=== PATIENT | female | born 1975 | race Caucasian/White ===

== ENCOUNTER 2019-06-07 13:24 | Outpatient (CLI) | payer OTHER, SELFPAY ==
--- NOTE | ~2019-06-07 | MM_ITS ---
EXAMINATION: MM screening garry BI w nellie HISTORY: Screening mammogram TECHNIQUE: Craniocaudal and mediolateral oblique 3-D tomosynthesis images were obtained and synthetic 2-D images were generated. CAD analysis was submitted and interpreted. COMPARISON: Comparison to multiple prior studies sequentially, with oldest reviewed study dated 05/15. BREAST PARENCHYMAL COMPOSITION: There are scattered areas of fibroglandular density. FINDINGS: There is no evidence of suspicious mass, calcification, or architectural distortion to sugg est malignancy in either breast. There has been no suspicious interval change. IMPRESSION: 1. No mammographic evidence of malignancy. 2. Recommend routine screening mammography in one year. BI-RADS Category 1: Negative Reviewed, dictated and finalized at location A. F SERVICES MANAGER
== END 2019-06-07 13:25 ==
PROVIDERS: PCP Family Medicine; Visit Provider Family Medicine
DX: Z12.31 Encounter for screening mammogram for malignant neoplasm of breast (principal)
CPT/HCPCS: 77063; 77067

== ENCOUNTER 2022-07-17 08:38 | Emergency (ER) | payer BC, SELFPAY ==
[2022-07-17] VITALS (14 sets, daily range): BP systolic 101–141; BP diastolic 30–102; PULSE 66–96; RESP 15–21; TEMP 36.6; O2SAT 79–99
--- NOTE | ~2022-07-17 | XR_ITS ---
EXAMINATION: XR chest 2V DATE: 07/17/2022 09:40 INDICATION: Chest pain TECHNIQUE: PA and lateral views of the chest are obtained. COMPARISON: 07/06/2017 FINDINGS: The lungs are free of acute opacities. There is mild scarring of the lung apices. No pleura l effusion or pneumothorax. The cardiomediastinal silhouette is normal. There is mild thoracic spondy losis. Surgical clips in the right upper quadrant are likely from prior cholecystectomy. IMPRESSION: 1. No acute cardiopulmonary abnormality. Reviewed, dictated and finalized at location A.
--- NOTE | 2022-07-17 08:43 | ECG_ITS ---
Measurements Intervals [place] Rate: 83 P: 63 TN: 141 QRS: 34 QRSD: 85 T: 11 QT: 351 QTc: 413 Interpretive Statements SINUS RHYTHM NO PREVIOUS ECG AVAILABLE FOR COMPARISON Electronically Signed On 07-17-2022 22:15:23 CDT by Micaela Stoddard M.D.
[2022-07-17] MEDS: NITROGLYCERIN SL 0.4 MG TABLET SUBLINGUAL (09:03)
[2022-07-17 09:22] LABS: Alanine Aminotransferase 18 U/L (6-35); Albumin Level 4.4 g/dL (3.5-5.1); Alkaline Phosphatase 83 U/L (38-126); Anion Gap 7 mmol/L (8-16); Aspartate Amino Transferase 20 U/L (14-36); Bilirubin,Total 0.5 mg/dL (0.2-1.3); Blood Urea Nitrogen 8 mg/dL (7-17); Calcium 9.3 mg/dL (8.4-10.2); Carbon Dioxide 28 mmol/L (22-30); Chloride 104 mmol/L (98-107); Estimated CRCL calculation 70 ml/min; Estimated Glomerular Filt Rate > 60; Glucose 94 mg/dL (65-110); INR 0.9; Lipase 55 U/L (23-300); Potassium 3.9 mmol/L (3.4-5.0); Prothrombin Time 12.1 Seconds (11.1-14.7); Sodium 139 mmol/L (137-145)
[2022-07-17 09:23] LABS: Partial Thromboplastin Time 27.7 SECONDS (22.3-36.8)
[2022-07-17 09:34] LABS: Troponin I < 0.012 ng/mL (0.000-0.034)
[2022-07-17 10:51] LABS: Basophils Absolute Auto 0.1 K/mm3 (0.0-0.1); Basophils Percent Auto 0.5 % (0.2-1.2); Eosinophils Absolute Auto 0.3 K/mm3 (0-0.3); Hematocrit 43.9 % (37.0-47.0); Hemoglobin 13.8 g/dL (12.0-15.0); Immature Granulocyte Absolute 0.07 K/mm3 (0.00-0.031); Immature Granulocyte Percent A 0.5 % (0-0.5); Lymphocytes Absolute Auto 3.23 K/mm3 (0.9-3.2); Lymphocytes Percent Auto 24.5 % (18.3-44.2); Mean Corpuscular HGB Conc 31.4 g/dl (32-36); Mean Corpuscular Hemoglobin 29.8 pg (26-34); Mean Corpuscular Volume 94.8 fl (80-100); Monocytes Absolute Auto 1.1 K/mm3 (0.1-0.6); Monocytes Percent Auto 8.3 % (2.6-8.5); Neutrophils Absolute Auto 8.5 K/mm3 (1.3-6.7); Neutrophils Percent Auto 64.2 % (45.5-73.1); Platelet Count Result 373 k/mm3 (150-375); Red Blood Count 4.63 M/mm3 (4.2-5.4); Red Cell Distribution Width 13.3 % (11.5-14.5); White Blood Count 13.2 K/mm3 (4.5-10.0)
--- NOTE | 2022-07-17 11:30 | ED.CHESTPAIN ---
HPI - Chest Pain General Chief Complaint: Chest Pain Stated Complaint: HTN/ Chest pain Time Seen by Provider: 07/17/22 08:45 History of Present Illness HPI narrative: Patient is a 46-year-old female who presents ER with left-sided chest pain. 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 Reports it is 8/10 and is currently 6/10. No history of heart disease. Reports family history of heart disease in her father she is a former smoker with COPD. No fevers or chills or sweats. She is found no modifying factors. She does not report any prodrome of exertional chest discomfort prior to today. Related Data Allergies Allergy/AdvReac Type Severity Reaction Status Date / Time amoxicillin Allergy Unknown Rash Verified 07/17/22 13:36 cephalexin Allergy Unknown Rash Verified 07/17/22 13:36 clavulanic acid Allergy Unknown Rash Verified 07/17/22 13:36 codeine Allergy Unknown INCREASED Verified 07/17/22 13:36 HEART RATE AND CHEST PAIN Penicillins Allergy Unknown Rash Verified 07/17/22 13:36 telithromycin Allergy Unknown Rash Verified 07/17/22 13:36 metronidazole [From Flagyl] Allergy Rash Verified 07/17/22 13:36 POTASSIUM CLAVULANATE Allergy Mild Rash Uncoded 07/17/22 13:36 AMOXICILLIN TRIHYDRATE AdvReac Mild migraine Uncoded 07/17/22 13:36 CEPHALEXIN MONOHYDRATE AdvReac Mild rash Uncoded 07/17/22 13:36 Review of Systems Review of Systems: All systems reviewed & are unremarkable except as noted in HPI and below Constitutional: Constitutional: Denies chills and Denies fever(s) ENT: Denies nasal congestion and Denies sore throat Cardiovascular: Cardiovascular: Reports chest pain, Denies rapid heart rate and Denies radiating jaw, neck or arm pain Respiratory: Respiratory: Denies cough and Denies dyspnea Gastrointestinal: Gastrointestinal: Denies abdominal pain, Denies nausea and Denies vomiting [facility] Family History Family History (Updated 11/29/13 @ 07:13 by DOCTOR UNKNOWN) Father Hypertension Family history of elevated blood lipids Family history of chronic obstructive pulmonary disease Family history of congestive heart failure Acute myocardial infarction Mother Hypertension Family history of elevated blood lipids Other Diabetes mellitus Family history of heart disease in male family member before age 55 Family history of kidney disease Social History Social History Alcohol intake: current Exam Narrative: GENERAL: Well-appearing, well-nourished, and in no acute distress. HEAD: Normocephalic, atraumatic. EYES: PERRL and EOMI. ENT: Mucous membranes moist. CHEST: Clear to auscultation. No respiratory distress. HEART: Regular rate and rhythm. Normal peripheral pulses. ABDOMEN: Soft, nontender, nondistended. EXTREMITIES: Normal range of motion. No edema. SKIN: Warm, dry, no rash. NEURO: Alert and oriented x3. PSYCH: Normal mood and affect. Course Course Emergency Course: Patient resting comfortably. Pain improved with nitro x1. Discussed case with hospitalist Dr. Arvizu. She recommends obtaining a second troponin as patient has normal EKG and negative first troponin. If that second troponin is negative she will arrange an outpatient stress test for the patient as we are unable to perform stress testing in the hospital over the weekend. Patient feels comfortable with this plan. Second troponin has come back negative. Have spoken with Dr. Stoddard with cardiology. Patient still has 1/10 discomfort present no distress. She prefers to go home if possible. I discussed with her that after speaking with cardiology patient could be admitted to the hospital with potentially a stress test in 2 days when stress testing is available or she could follow-up outpatient for stress test. Patient prefers second option. The cardiology office will contact her. Vital Signs Vital signs: Vital Signs Temperature 97.9 F 07/17/22 08:42 Pulse Rate 8
[2022-07-17 12:24] LABS: Troponin I < 0.012 ng/mL (0.000-0.034)
== END 2022-07-17 13:59 | disposition home or self-care (01) ==
PROVIDERS: Emergency Provider Emergency Medicine; PCP Family Medicine
DX: R07.9 Chest pain, unspecified (principal); Z87.891 Personal history of nicotine dependence; J44.9 Chronic obstructive pulmonary disease, unspecified
CPT/HCPCS: 36415; 71046; 80053; 83690; 84484; 85025; 85610; 85730; 93005; 99284; A9270

== ENCOUNTER 2023-01-23 15:39 | Emergency (ER) | payer BC, SELFPAY ==
[2023-01-23 15:40] VITALS: BP 149/75; PULSE 63; RESP 18; TEMP 36.4; O2SAT 100
--- NOTE | 2023-01-23 16:41 | ED.SKABFB ---
HPI - Skin/Abscess/Foreign Bdy General Chief complaint: Skin/Abscess/Foreign Body Stated complaint: knot in groin area Time Seen by Provider: 01/23/23 15:46 History of Present Illness HPI narrative: Patient is a 47-year-old female who presents ER with concerns for infection to her left labia/mons region. Worsening over the last 3 days. No drainage. Increasing pain with palpation. No intravaginal component. Related Data Allergies Allergy/AdvReac Type Severity Reaction Status Date / Time amoxicillin Allergy Unknown Rash Verified 07/17/22 13:36 cephalexin Allergy Unknown Rash Verified 07/17/22 13:36 clavulanic acid Allergy Unknown Rash Verified 07/17/22 13:36 codeine Allergy Unknown INCREASED Verified 07/17/22 13:36 HEART RATE AND CHEST PAIN Penicillins Allergy Unknown Rash Verified 07/17/22 13:36 telithromycin Allergy Unknown Rash Verified 07/17/22 13:36 metronidazole [From Flagyl] Allergy Rash Verified 07/17/22 13:36 POTASSIUM CLAVULANATE Allergy Mild Rash Uncoded 07/17/22 13:36 AMOXICILLIN TRIHYDRATE AdvReac Mild migraine Uncoded 07/17/22 13:36 CEPHALEXIN MONOHYDRATE AdvReac Mild rash Uncoded 07/17/22 13:36 Review of Systems Constitutional: Constitutional: Denies chills and Denies fever(s) Genitourinary: Genitourinary: Denies abnormal vaginal bleeding, Denies genital lesions, Denies dysuria and Denies vaginal discharge Integumentary/Breasts: Skin/Breast: Denies erythema and Denies rash PMFSH Past Medical History Medical History (Updated 01/23/23 @ 16:53 by Ramon Saleem MD) COPD (chronic obstructive pulmonary disease) GERD (gastroesophageal reflux disease) Hypertension Surgical History Surgical History (Updated 01/23/23 @ 16:53 by Ramon Saleem MD) History of hysterectomy Family History Family History (Updated 11/29/13 @ 07:13 by DOCTOR UNKNOWN) Father Hypertension Family history of elevated blood lipids Family history of chronic obstructive pulmonary disease Family history of congestive heart failure Acute myocardial infarction Mother Hypertension Family history of elevated blood lipids Other Diabetes mellitus Family history of heart disease in male family member before age 55 Family history of kidney disease Social History Social History Alcohol intake: current Exam Narrative: GENERAL: Well-appearing, well-nourished, and in no acute distress. HEAD: Normocephalic, atraumatic. : Left labial cystic abscess without cellulitis. No intravaginal involvement. EXTREMITIES: Normal range of motion. No edema. NEURO: Alert and oriented x3. PSYCH: Normal mood and affect. Course Course Emergency Course: Abscess drained. Discharge home. Vital Signs Vital signs: Vital Signs Temperature 97.6 F 01/23/23 15:40 Pulse Rate 63 01/23/23 15:40 Respiratory Rate 18 01/23/23 15:40 Blood Pressure 149/75 H 01/23/23 15:40 Pulse Oximetry 100 01/23/23 15:40 Oxygen Delivery Room Air 01/23/23 15:40 Temperature 97.6 F 01/23/23 15:40 Pulse Rate 63 01/23/23 15:40 Respiratory Rate 18 01/23/23 15:40 Blood Pressure 149/75 H 01/23/23 15:40 Pulse Oximetry 100 01/23/23 15:40 Oxygen Delivery Room Air 01/23/23 15:40 Procedures Abscess I/D left labia: Date of Incision: 01/23/23 Time of Incision: 16:35 Local Anesthetic: lidocaine 1% and with epi Amount of anesthesia used (mL): 1.5 Technique: incised with #11 blade Packing used?: iodoform I&D Results: Pus Discharge Plan Discharge Clinical Impression: Abscess Patient Disposition: Home, Self-Care Condition: Stable Instructions: Antibiotic Form, Abscess (ED) Additional Instructions: Return the ER if you have increased pain, you have worsening redness or swelling to the affected area, you have additional concerns. Remove the packing in 2 days. Follow-up with gynecology you have additional issues. Prescriptions:
[2023-01-23] MEDS: LIDO 1%/EPINEPHRINE 1:100,000 20 ML VIAL (16:44)
== END 2023-01-23 17:06 | disposition home or self-care (01) ==
PROVIDERS: Emergency Provider Emergency Medicine; PCP Family Medicine
DX: N76.4 Abscess of vulva (principal); K21.9 Gastro-esophageal reflux disease without esophagitis; I10 Essential (primary) hypertension; J44.9 Chronic obstructive pulmonary disease, unspecified
CPT/HCPCS: 56405; 99283

== ENCOUNTER 2023-08-25 09:52 | Outpatient (CLI) | payer BC, SELFPAY ==
--- NOTE | ~2023-08-25 | XR_ITS ---
Right Hand Technique: PA, oblique, and lateral views were obtained. Clinical History: Pain Findings: No acute fracture or dislocation is seen. Osseous alignment is anatomic. Joint spaces are p reserved. Soft tissues are unremarkable. Impression: Unremarkable right hand. Reviewed, dictated and finalized at location M. Impression: Unremarkable right hand.
== END 2023-08-25 09:53 | disposition home or self-care (01) ==
LOC: ANHIMG 09:58
PROVIDERS: PCP Family Medicine
DX: M25.541 Pain in joints of right hand (principal)
CPT/HCPCS: 73130

== ENCOUNTER 2023-09-24 23:45 | Emergency (ER) | payer BC, SELFPAY ==
--- NOTE | ~2023-09-24 | XR_ITS ---
EXAMINATION: XR chest 1V portable DATE: 09/25/2023 00:25 INDICATION: Midsternal chest pain radiating to the left shoulder TECHNIQUE: frontal view of the chest was obtained. COMPARISON: Chest radiograph dated 07/17/2022 FINDINGS: Chronic mild right apical pleural-parenchymal scarring. No other airspace opacities, pulmonary edema, pleural effusion or pneumothorax. The cardiomediastinal silhouette is normal. IMPRESSION: 1. No acute cardiopulmonary disease. Reviewed, dictated and finalized at location A.
[2023-09-24 23:48] VITALS: BP 135/72; PULSE 64; RESP 14; TEMP 36.2; O2SAT 95
--- NOTE | 2023-09-24 23:49 | ECG_ITS ---
Test Date: 2023-09-24 23:50:34 Measurements Intervals [place] Rate: 65 P: 60 MS: 138 QRS: 36 QRSD: 98 T: 13 QT: 414 QTc: 431 Interpretive Statements SINUS RHYTHM WITH SINUS ARRHYTHMIA NORMAL ELECTROCARDIOGRAM No previous ECG available for comparison Electronically Signed On 09-25-2023 08:42:23 CDT by Noman Salguero M.D.
[2023-09-25] VITALS (16 sets, daily range): BP systolic 106–128; BP diastolic 71–77; PULSE 46–68; RESP 12–22; O2SAT 91–97
[2023-09-25 00:05] LABS: Basophils Absolute Auto 0.1 K/mm3 (0.0-0.1); Basophils Percent Auto 0.5 % (0.2-1.2); Eosinophils Absolute Auto 0.4 K/mm3 (0-0.3); Hematocrit 42.1 % (37.0-47.0); Hemoglobin 13.8 g/dL (12.0-15.0); Immature Granulocyte Absolute 0.03 K/mm3 (0.00-0.031); Immature Granulocyte Percent A 0.3 % (0-0.5); Lymphocytes Absolute Auto 4.26 K/mm3 (0.9-3.2); Lymphocytes Percent Auto 39.9 % (18.3-44.2); Mean Corpuscular HGB Conc 32.8 g/dl (32-36); Mean Corpuscular Hemoglobin 30.8 pg (26-34); Mean Platelet Volume 9.3 fl (7.4-10.4); Monocytes Absolute Auto 0.8 K/mm3 (0.1-0.6); Monocytes Percent Auto 7.1 % (2.6-8.5); Neutrophils Absolute Auto 5.2 K/mm3 (1.3-6.7); Neutrophils Percent Auto 48.2 % (45.5-73.1); Platelet Count Result 358 k/mm3 (150-375); Red Blood Count 4.48 M/mm3 (4.2-5.4); White Blood Count 10.7 K/mm3 (4.5-10.0)
[2023-09-25 00:15] LABS: INR 0.9; Prothrombin Time 13.1 Seconds (11.1-14.7)
[2023-09-25 00:26] LABS: Alanine Aminotransferase 36 U/L (6-35); Albumin Level 4.5 g/dL (3.5-5.1); Alkaline Phosphatase 76 U/L (38-126); Anion Gap 8 mmol/L (4-12); Aspartate Amino Transferase 33 U/L (14-36); Bilirubin,Total 0.5 mg/dL (0.2-1.3); Blood Urea Nitrogen 8 mg/dL (7-17); Calcium 9.4 mg/dL (8.4-10.2); Carbon Dioxide 26 mmol/L (22-30); Chloride 106 mmol/L (98-107); Estimated CRCL calculation 62 ml/min; Estimated Glomerular Filt Rate 59; Glucose 93 mg/dL (65-110); Lipase 77 U/L (23-300); Potassium 3.2 mmol/L (3.4-5.0); Sodium 140 mmol/L (137-145)
[2023-09-25 00:38] LABS: Troponin I < 0.012 ng/mL (0.000-0.034)
[2023-09-25] MEDS: BELLADONNA ALK/PHENOB ELIX 10 ML, MAG HYDROX/ALUMINUM HYD/SIMETH 30 ML, LIDOCAINE HCL 2... PO (00:58)
[2023-09-25] MEDS: NITROGLYCERIN SL 0.4 MG TABLET SUBLINGUAL (01:00)
--- NOTE | 2023-09-25 01:00 | PC.NURSE ---
0100 1st nitro given 62bpm, 17 RR, 94% on RA, and 137/73. Pain still 8/10.
[2023-09-25 01:01] LABS: NT Pro B Type Natriuretic Pept 49 pg/mL (19.9-100)
--- NOTE | 2023-09-25 02:36 | ECG_ITS ---
Test Date: 2023-09-25 02:45:11 Measurements Intervals [place] Rate: 49 P: 65 LA: 148 QRS: 53 QRSD: 107 T: 37 QT: 460 QTc: 419 Interpretive Statements SINUS BRADYCARDIA WITH SINUS ARRHYTHMIA OTHERWISE NORMAL ECG Compared to ECG 09/24/2023 23:50:34 HEART RATE REDUCED, NO OTHER DIFFERENCE Electronically Signed On 09-25-2023 08:47:29 CDT by Noman Salguero M.D.
--- NOTE | 2023-09-25 02:51 | PC.NURSE ---
Patient ambulated to the bathroom with a steady gait and back to her room. Patient placed back on the monitor.
--- NOTE | 2023-09-25 03:03 | ED.GENADULT ---
HPI - General Adult General Chief complaint: Chest Pain Stated complaint: cp Time Seen by Provider: 09/25/23 00:14 History of Present Illness HPI narrative: Patient is a 48-year-old female that presents emergency department with chief complaint of chest pain. Patient reports that she has had some discomfort in her mid chest radiates to her shoulder for the last hour the patient does reports she has history of CHF but no prior history of ischemic cardiac disease. Patient reports no stents reports she did take an aspirin prior to arrival. Related Data Allergies Allergy/AdvReac Type Severity Reaction Status Date / Time amoxicillin Allergy Unknown Rash Verified 09/25/23 00:57 cephalexin Allergy Unknown Rash Verified 09/25/23 00:57 clavulanic acid Allergy Unknown Rash Verified 09/25/23 00:57 codeine Allergy Unknown INCREASED Verified 09/25/23 00:57 HEART RATE AND CHEST PAIN Penicillins Allergy Unknown Rash Verified 09/25/23 00:57 telithromycin Allergy Unknown Rash Verified 09/25/23 00:57 metronidazole [From Flagyl] Allergy Rash Verified 09/25/23 00:57 POTASSIUM CLAVULANATE Allergy Mild Rash Uncoded 07/17/22 13:36 AMOXICILLIN TRIHYDRATE AdvReac Mild migraine Uncoded 07/17/22 13:36 CEPHALEXIN MONOHYDRATE AdvReac Mild rash Uncoded 07/17/22 13:36 Review of Systems Review of Systems: A 10 system review of systems was completed on the patient and is negative except for what is stated in the HPI. Nursing and ancillary documentation was reviewed. PMFSH Past Medical History Medical History COPD (chronic obstructive pulmonary disease) GERD (gastroesophageal reflux disease) Hypertension Surgical History Surgical History History of hysterectomy Family History Family History Father Hypertension Family history of elevated blood lipids Family history of chronic obstructive pulmonary disease Family history of congestive heart failure Acute myocardial infarction Mother Hypertension Family history of elevated blood lipids Other Diabetes mellitus Family history of heart disease in male family member before age 55 Family history of kidney disease Social History Social History Alcohol intake: current Exam Narrative: GENERAL: Well-appearing, well-nourished, and in no acute distress. HEAD: Normocephalic, atraumatic. EYES: PERRLA and EOMI. ENT: Nares clear, no rhinorrhea or epistaxis. Mucous membranes moist. NECK: Supple. CHEST: Clear to auscultation. No respiratory distress. HEART: Regular rate and rhythm. No murmur heard. Normal peripheral pulses. ABDOMEN: Soft, nontender, nondistended, normal active bowel sounds. EXTREMITIES: Normal range of motion. No edema. SKIN: Warm, dry, no rash. NEURO: No focal deficits. Alert and oriented x3. PSYCH: Normal mood and affect. Course Vital Signs Vital signs: Vital Signs Temperature 36.2 C L 09/24/23 23:48 Pulse Rate 64 09/24/23 23:48 Respiratory Rate 14 09/24/23 23:48 Blood Pressure 135/72 09/24/23 23:48 Pulse Oximetry 95 09/24/23 23:48 Oxygen Delivery Room Air 09/24/23 23:48 Temperature 36.2 C L 09/24/23 23:48 Pulse Rate 59 L 09/25/23 02:30 Respiratory Rate 19 09/25/23 02:30 Blood Pressure 106/75 09/25/23 01:16 Pulse Oximetry 94 09/25/23 02:30 Oxygen Delivery Room Air 09/25/23 01:56 Medical Decision Making [facility] Narrative Medical decision making narrative: Differential diagnosis includes noncardiac chest pain, ACS, CHF exacerbation, dysrhythmia Laboratory studies were obtained on the patient showed a white count of 10.7 electrolytes are within normal limits potassium was 3.2 troponin 0 hour was negative lipase was normal Chest x-ray showed no focal
[2023-09-25 03:15] LABS: Troponin I < 0.012 ng/mL (0.000-0.034)
== END 2023-09-25 03:49 | disposition home or self-care (01) ==
PROVIDERS: Emergency Provider Emergency Medicine; PCP Family Medicine
DX: R07.89 Other chest pain (principal); J44.9 Chronic obstructive pulmonary disease, unspecified; K21.9 Gastro-esophageal reflux disease without esophagitis; I10 Essential (primary) hypertension; Z90.710 Acquired absence of both cervix and uterus; R00.1 Bradycardia, unspecified
CPT/HCPCS: 36415; 71045; 80053; 83690; 83880; 84484; 85025; 85610; 85730; 93005; 99284; A9270

== ENCOUNTER 2024-08-21 15:29 | Emergency (ER) | payer BC, SELFPAY ==
[2024-08-21] VITALS (8 sets, daily range): BP systolic 112–130; BP diastolic 77–87; PULSE 94–114; RESP 18–24; TEMP 36.6–37.2; O2SAT 94–97
--- NOTE | ~2024-08-21 | XR_ITS ---
XR chest 2V Ordering provider: Luz Lewis PA-C History: 49 years Female with . sob . Comparison: September 25, 2023 FINDINGS: MEDIASTINUM: The cardiac silhouette is not enlarged. LUNGS: No infiltrates, effusions or pneumothorax. OTHER: No free air under the diaphragm. IMPRESSION: No acute cardiopulmonary pathology. Reviewed, dictated and finalized at location A.
--- NOTE | ~2024-08-21 | CT_ITS ---
EXAMINATION: CTA chest PE protocol DATE: 08/21/2024 21:36 INDICATION: MEY TECHNIQUE: Computed tomography angiography (CTA) of the chest was performed with 100 mL Omnipaque-350 intravenous contrast timed to evaluate the pulmonary arteries. Coronal maximum intensity projection 3D-reconstructions were created by the technologist. The dose-length product (DLP) was 291.41 mGy-cm. Automated exposure control and iterative reconstruction technique were employed. COMPARISON: X-ray chest, same date. FINDINGS: Lung parenchyma and airways: Mild emphysematous change. Mild bibasilar scar/atelectasis. Scattered ca lcified granulomas. Mild biapical pleural scarring. Patent airways. Pleura: Unremarkable. Thoracic inlet, axillae and chest wall: Unremarkable. Thoracic aorta: No significant dilation. No dissection. Mediastinum: Normal. Heart and pericardium: Normal. Coronary artery calcifications: . Upper abdomen: Left nephrolithiasis. Bones: No acute osseous finding. Pulmonary arteries: Study quality: Adequate. No pulmonary emboli detected. IMPRESSION: No CT evidence of acute pulmonary embolus. No acute process detected in the chest. Reviewed, dictated and finalized at location K.
--- OUTSIDE RECORDS SUMMARY | 2024-08-21 15:31 | XMS_ITS | Encounter Summary ---
Author Organization [facility] Address [address] [place] [id number] Care Team Providers Care Director Business Development Name Role Phone Essence Bowles MD Primary Care Provider [phone] Encounter Details Date Type Department Care Team (Late st Contact Info) Description 09/04/2019 Lab Requisition [facility]BIOLOG[facility] [address] [place] [address] Sahil Rodriguez MD Cough Social History Tobacco Use Types Packs/Day Years Used Date Smoking Tobacco: Never Assessed Comments Unknown Sex and Gender Information Value Date Recorded Sex Assigned at Not on file Legal Sex Female 8:57 AM CDT Gender Identity Not on file Sexual Orientation Not on file documented as of this encounter Plan of Treatment Not on file documented as of this encounter Procedures Procedure Name Priority Date/Time Associated Diagnosis Comments SARS-COV-2 (COVID-19) IN HOUSE Routine 09/04/2019 11:05 AM CDT Cough documented in this encounter Results * SARS-COV-2 (COVID-19) IN HOUSE (09/04/2019 11:05 AM CDT) COVID-19 PCR Not detected Not detected, Invalid 09/05/2019 3:22 PM CDT [facility] Microbiology SPECIMEN FROM NASOPHARYNGEAL STRUCTURE / Unknown Collection / Unknown 09/04/2019 11:05 AM CDT 09/04/2019 9:38 PM CDT Narrative [facility] - 09/05/2019 3:22 PM CDT This Real Time RT-PCR assay was developed and its performance characteristics determined by [facility]. This test has been authorized by the Food and Drug administration (FDA)under an Emergency Use Authorization (EUA). This test has been validated in accordance with the FDA's guidance document Policy for Diagnostic Testing in Laboratories Certified to perform High Complexity Testing under CLIA prior to Emergency Use Authorization for Coronavirus Disease-2019 during the Public Health Emergency issued on June 02, 2019. FDA independent review of this validation is pending. This test is only authorized for the duration of time the declaration that circumstances exist justifying the authorization of emergency use of in vitro diagnostic tests for detection of SARS-CoV-2 virus and/or diagnosis of COVID-19 infection under section 564(b)(1) of the Act, 21 U.S.C 360bbb-3 (b)(1), unless the authorization is terminated or revoked sooner. us Sahil Rodriguez MD LAB - MICROBIOLOGY ORDERABL ES Final Result [facility] [address] [place] [address], [facility] [phone] documented in this encounter Visit Diagnoses Diagnosis Cough documented in this encounter Additional Health Concerns Infection Onset Date Last Indicated Resolved Time COVID-19 Under Investigation 09/04/2019 09/04/2019 09/05/2019 3:22 PM CDT documented as of this encounter Care Teams Director Business Development Relationship Specialty Start Date End Date Essence Bowles MD [facility] [place] [id number] PCP - General 08/29/19 documented as of this encounter
--- OUTSIDE RECORDS SUMMARY | 2024-08-21 15:31 | XMS_ITS | Encounter Summary ---
Author Organization [facility] Address [address] [place] [address] Phone Care Team Providers Care Clinical Education Specialist Name Role Phone Elver Pineda MD Primary Care Provider [phone] Monica Villarreal MD Primary Care Provider + [phone] Kaiden Feliciano Primary Care Provider + [phone] Encounter Details Date Type Department Care Team (Latest Contact Info) Description 09/22/2022 Transcribe Orders [facility] Patient Access Admitting [address] [place] [address] Edmundo Carvajal MD [address] [facility], [address] [place] [address] Pain of lower extremity, unspecified laterality (Primary Dx); Chest pain, unspecified type; Irritable bowel syndrome, unspecified type; Other migraine without status migrainosus, not intractable; Attention deficit hyperactivity disorder (ADHD), unspecified ADHD type; Obstructive chronic bronchitis without exacerbation (HCC); Family history of ischemic heart disease; Hyperlipidemia, unspecified hyperlipidemia type; Hypertension, unspecified type Social History Tobacco Use Types Packs/Day Years Used Date Smoking Tobacco: Former Cigarettes 2017 Smokeless Tobacco: Never Alcohol Use Standard Drinks/Week Comments Never 0 (1 standard drink = 0.6 oz pur e alcohol) AUDIT-C Answer Date Recorded Frequency of Alcohol Consumption Never 01/23/2019 Average Number of Drinks Not on file 019 Frequency of Binge Drinking Not on file 01/03 Comments No Sex and Gender Information Value Date Recorded Sex Assigned at Not on file Legal Sex Female 10:16 AM CDT Gender Identity Not on file Sexual Orientation Not on file COVID-19 Exposure Response Date Recorded In the last 10 days, have yo u been in contact with someone who was confirmed or suspected to have Coronavirus/COVID-19? No / Unsure 09/22/2022 7:20 AM CDT documented as of this encounter Plan of Treatment Upcoming Encounters Date Type Department Care Team (Late st Contact Info) Description 11/21/2024 8:15 AM CDT Office Visit [facility] - Primary Care - [place] [address] [place] [address] Kaiden Feliciano PAC [address] [place] [address] documented as of this encounter Results * D-DIMER (09/22/2022 7:28 AM CDT) D DIMER 0.35 <0.50 mcg/mL FEU 09/22/2022 8:07 AM CDT [facility] Blood Venipuncture / Unknown 09/22/2022 7:28 AM CDT 09/22/2022 7:50 AM CDT Narrative [facility] - 09/22/2022 8:07 AM CDT The FDA has approved this method to exclude the diagnosis of DVT and/or PE at the cutoff value of <0.50 mcg/mL FEU. us Edmundo Carvajal MD HEMATOLOGY ORDERABLES Final Res ult [facility] [address] [place] [address] * (ABNORMAL) VITAMIN B12 (09/22/2022 7:28 AM CDT) VITAMIN B12 >=2,000(H) 243 - 894 pg/mL 09/22/2022 8:39 AM CDT [facility] Blood Venipuncture / Unknown 09/22/2022 7:28 AM CDT 09/22/2022 7:50 AM CDT Edmundo Carvajal MD CHEMISTRY ORDERABLES Final Resu lt [facility] [address] [place] [address] * VITAMIN D, 25 HYDROXY TOTAL (09/22/2022 7:28 AM CDT) VITAMIN D, 25 HYDROX 68 >=30 ng/mL 09/22/2022 8:37 AM CDT [facility] Blood Venipuncture / Unknown 09/22/2022 7:28 AM CDT 09/22/2022 7:50 AM CDT Narrative [facility] - 09/22/2022 8:37 AM CDT Published reference ranges for Vitamin D vary depending on time and place and method of testing, and on patient's age, sex, ethnicity and levels of other measured analytes such as parathormone, calcium and phosphorus. The result should be evaluated in conjunction with clinical findings and suspicions. [place] [employer] and [employer]ocrine Clinical Practice Guidelines: Status Vitamin D levels (ng/mL) Deficient <=20 At risk of inadequacy 21-29 Sufficient 30-100 Centers of Disease Control and Prevention Guidelines: Status Vitamin D levels (ng/mL) Deficient <13 At risk of inadequacy 13-19 Sufficient 20-50 Possibly harmful >50 References: [place] [employer], 2010 Dietary reference intakes for calcium and vitamin D. [place]: The National Academies Press. John M, Ines N, Shahnaz OROZCO, et al., Evaluation, treatment, and prevention of Vitamin D deficiency: an Endocrinology Clinical Practice Guideline. JCEM 2011 96: 7 5920-8762. Janie A, Ismael C, Diandra D, et al., Vitamin D Status: [place], 4511-8955, [facility] data brief, no. 59, MD [place]: [facility] for [facility] Statistics. 2011. Edmundo Carvajal MD CHEMISTRY ORDERABLES Final Resu lt [facility] [address] [place] [address] * (ABNORMAL) LIPID PANEL (09/22/2022 7:28 AM CDT) CHOLESTEROL 215(H) <=200 mg/dL 09/22/2022 8:27 AM CDT [facility] TRIGLYCERIDES 185(H) <150 mg/dL 09/22/2022 8:27 AM CDT [facility] HDL CHOLESTEROL 45.5 >40 mg/dL 8:27 AM CDT [facility] LDL 133(H) 5 - 130 mg/dL 09/22/2022 8:27 AM CDT [facility] VLDL 37 5 - 55 mg/dL 09/22/2022 8:27 AM CDT [facility] CHOL/HDL RATIO 4.7(H) 0.0 - 4.4 09/22/2022 8:27 AM CDT [facility] NON-HDL CHOLESTEROL 169.5(H) <130 mg/dL 09/22/2022 8:27 AM CDT [facility] IS THE PATIENT REQUIRED TO BE FASTING? No 09/22/2022 8:27 AM CDT [facility] Blood Venipuncture / Unknown 09/22/2022 7:28 AM CDT 09/22/2022 7:50 AM CDT Edmundo Carvajal MD CHEMISTRY ORDERABLES Final Resu lt [facility] [address] [place] [address] * (ABNORMAL) LIPOPROTEIN (A) (09/22/2022 7:28 AM CDT) [facility] LIPOPROTEIN(a) 72(H) <31 mg/dL 09/22/2022 3:23 PM CDT [facility] Blood Venipuncture / Unknown 09/22/2022 7:28 AM CDT 09/22/2022 7:50 AM CDT Narrative [facility] - 09/22/2022 3:23 PM CDT Values greater than 30 mg/dL may suggest increased risk of Coronary Heart Disease.. us Edmundo Carvajal MD CHEMISTRY ORDERABLES Final Resu lt Performing Organization Address City/[facility]/ZIP Co de Phone Number [facility] [address] [place] [address], [place] * C-REACTIVE PROTEIN (CRP) HIGH SENSITIVE (09/22/2022 7:28 AM CDT) [facility] CRP ULTRAQUANT 1.93 <5.00 mg/L 09/22/2022 7:46 PM CDT [facility] Blood Venipuncture / Unknown 09/22/2022 7:28 AM CDT 09/22/2022 7:50 AM CDT us Edmundo Carvajal MD CHEMISTRY ORDERABLES Final Resu lt Performing Organization Address City/[facility]/ZIP Co de Phone Number [facility] [address] [place] [address], [place] * HEMOGLOBIN A1C W/ ESTIMATED GLUCOSE (09/22/2022 7:28 AM CDT) [facility] HGB-A1C 5.3 4.0 - 6.0 % 09/22/2022 8:17 AM CDT [facility] Est Average Glucose 105.4 mg/dL 09/22/2022 8:17 AM CDT [facility] Blood Venipuncture / Unknown 09/22/2022 7:28 AM CDT 09/22/2022 7:50 AM CDT Narrative [facility] - 09/22/2022 8:17 AM CDT HEMOGLOBIN A1C: DIABETIC PATIENTS: WELL-CONTROLLED: 6.2 - 7.0 INTERMEDIATE WELL-CONTROLLED: 7.0 - 9.0 POORLY-CONTROLLED: >9.0 Edmundo Carvajal MD CHEMISTRY ORDERABLES Final Resu lt Performing Organization Address City/[facility]/ZIP Co de Phone Number [facility] [address] [place] [address] * UR MICROALBUMIN/CREATININE RATIO RANDOM (09/22/2022 7:28 AM CDT) RAN UR MICROALBUMIN <=1.20 <=2.00 mg/dL 09/22/2022 8:39 AM CDT [facility] CREATININE URINE 143.9 28.0 - 217.0 mg/dL 09/22/2022 8:39 AM CDT [facility] ALB/CREAT RATIO 8:39 AM CDT [facility] Comment:Unable to calculate Urine Non-Phlebotomy Collection / Unknown 09/22/2022 7:28 AM CDT 09/22/2022 7:50 AM CDT us Edmundo Carvajal MD URINE ORDERABLES Final Result Performing Organization Address [facility]/ZIP Co de Phone Number [facility] [address] [place] [address] * (ABNORMAL) IRON W/IRON BINDING CAPACITY (09/22/2022 7:28 AM CDT) IRON 49.65 37 - 145 mcg/dL 09/22/2022 8:27 AM CDT [facility] % SATURATION * 17(L) 20 - 55 % 09/22/2022 8:27 AM CDT [facility] UIBC 241 112 - 346 mcg/dL 09/22/2022 8:27 AM CDT [facility] TIBC CALC 291 149 - 491 mcg/dL 09/22/2022 8:27 AM CDT [facility] Blood Venipuncture / Unknown 09/22/2022 7:28 AM CDT 09/22/2022 7:50 AM CDT Edmundo Carvajal MD CHEMISTRY ORDERABLES Final Resu lt Performing Organization Address City/[facility]/ZIP Co de Phone Number [facility] [address] [place] [address] * FERRITIN (09/22/2022 7:28 AM CDT) FERRITIN 147 13 - 150 ng/mL 09/22/2022 8:27 AM CDT [facility] Blood Venipuncture / Unknown 09/22/2022 7:28 AM CDT 09/22/2022 7:50 AM CDT Edmundo Carvajal MD CHEMISTRY ORDERABLES Final Resu lt Performing Organization Address City/[facility]/ZIP Co de Phone Number [facility] [address] [place] [address] * (ABNORMAL) CMP (COMPREHENSIVE METABOLIC PANEL) (09/22/2022 7:28 AM CDT) SODIUM 139 136 - 144 mmol/L 09/22/2022 8:27 AM CDT [facility] POTASSIUM 3.3(L) 3.5 - 5.1 mmol/L 09/22/2022 8:27 AM CDT [facility] CHLORIDE 102 100 - 110 mmol/L 09/22/2022 8:27 AM CDT [facility] CO2, VENOUS 26 22 - 32 mmol/L 09/22/2022 8:27 AM CDT [facility] ANION GAP 14.3 8.0 - 20.0 mmol/L 09/22/2022 8:27 AM CDT [facility] GLUCOSE 95 70 - 99 mg/dL 09/22/2022 8:27 AM [facility] BUN 8 6 - 20 mg/dL 09/22/2022 8:27 AM [facility] CREATININE, BLOOD 0.93 0.60 - 1.10 mg/dL 09/22/2022 8:27 AM [facility] BUN/CREATININE RATIO 9(L) 12 - 20 ratio 09/22/2022 8:27 AM [facility] TOTAL PROTEIN 6.7 6.0 - 8.3 g/dL 09/22/2022 8:27 AM [facility] ALBUMIN 4.1 3.5 - 5.2 g/dL 09/22/2022 8:27 AM [facility] Comment: The colormetric methods used for the determination of Albumin may lead to falsely elevated test results in patients suffering from renal failure or insufficiency due to interference with other proteins. A/G RATIO 1.6 1.0 - 2.0 09/22/2022 8:27 AM [facility] CALCIUM 9.3 8.9 - 10.3 mg/dL 09/22/2022 8:27 AM [facility] T BILI <0.3 <=1.2 mg/dL 09/22/2022 8:27 AM [facility] SGOT (AST) 13 <=32 U/L 09/22/2022 8:27 AM [facility] SGPT (ALT) 12 <=41 U/L 09/22/2022 8:27 AM [facility] ALKALINE PHOSPHATASE 88 35 - 105 U/L 09/22/2022 8:27 AM [facility] IS THE PATIENT REQUIRED TO BE FASTING? No 09/22/2022 8:27 AM [facility] GFR, ESTIMATED >60 >=60 09/22/2022 8:27 AM [facility] Comment: Creatinine Clearance is the preferred criteria for selecting drug dose adjustments in renally impaired patients. The GFR is provided as additional pertinent clinical information. GFR is reported in mL/min/1.73 sq m. Calculation based on the Chronic Kidney Disease Epidemiology Collaboration (CKD- EPI) equation refit without adjustment for race. GFR, EST. >60 >=60 023 8:27 AM CDT [facility] GFR, EST. NONAFRICAN >60 >=60 09/22/2022 8:27 AM CDT [facility] Blood Venipuncture / Unknown 09/22/2022 7:28 AM CDT 09/22/2022 7:50 AM CDT Edmundo Carvajal MD CHEMISTRY ORDERABLES Final Resu lt Performing Organization Address City/[facility]/ZIP Co de Phone Number [facility] [address] [place] [address] * N-TERMINAL- PRO B TYPE NATRIURETIC PEPTIDE (09/22/2022 7:28 AM CDT) NT PROBNP 55.3 36.0 - 125.0 pg/mL 09/22/2022 8:24 AM CDT [facility] Comment:NT-proBNP values < 3 00 pg/mL have a 99% negative predictive value for excluding acute congestive heart failure (CHF) in all age groups. In the absence of renal failure, CHF is suggested in adults < 50 years of age with a NT-pro BNP > 450 pg/mL; in adults 50-75 years of age with a NT-proBNP > 900 pg/mL; and in adults > 75 years of age with a NT-proBNP > 1800 pg/mL. For patients with an e-GFR < 60 a NT-proBNP > 1200 pg/mL yields a diagnostic sensitivity and specificity of 89% and 72% for acute CHF. ([facility] data) Blood Venipuncture / Unknown 09/22/2022 7:28 AM CDT 09/22/2022 7:50 AM CDT us Edmundo Carvajal MD CHEMISTRY ORDERABLES Final Resu lt Performing Organization Address City/[facility]/ZIP Co de Phone Number [facility] [address] [facility] [place] [address] documented in this encounter Visit Diagnoses Diagnosis Pain of lower extremity, unspecified laterality- Primary Chest pain, unspecified type Irritable bowel syndrome, unspecified type Other migraine without status migrainosus, not intractable Attention deficit hyperactivity disorder (ADHD), unspecified ADHD type Obstructive chronic bronchitis without exacerbation (HCC) Obstructive chronic bronchitis without exacerbation Family history of ischemic heart disease Hyperlipidemia, unspecified hyperlipidemia type Hypertension, unspecified type documented in this encounter Care Teams Clinical Education Specialist Relationship Specialty Start Date End Date Elver Pineda MD [address] [place] [address] PCP - General Family Medicine 08/07/19 03/11/24 Monica Villarreal MD [address] [place] [address] PCP - General Family Medicine 03/12/24 05/22/24 Kaiden Feliciano, [facility] [address] [place] [id number] PCP - General Physician Clerical Receptionist 05/23/24 documented as of this encounter
--- OUTSIDE RECORDS SUMMARY | 2024-08-21 15:31 | XMS_ITS | Clinical Summary ---
Author Organization [facility] Address [address] [place] [address] Care Team Providers Care Registered Radiation Therapist Name Role Phone Essence Bowles MD Primary Care Provider [phone] Source Comments [facility] (formerly [facility]),non-owned Affiliates and Associated Physician Practices is amultiple site organization consisting of ambulatory clinics and hospital sitesin [place]. This disclosure is being madepursuant to the Care Everywhere program and may not contain all information available regarding this patient. Last updated 17.[facility] ([facility] Social History Tobacco Use Types Packs/Day Years Used Date Smoking Tobacco: Never Assessed Comments Unknown Sex and Gender Information Value Date Recorded Sex Assigned at Not on file Legal Sex Female 8:57 AM CDT Gender Identity Not on file Sexual Orientation Not on file Plan of Treatment Health Maintenance Due Date Last Done Comments COLOGUARD (AGES 45-75) - COL ON CA SCREENING 1973 COLON MONITORING 1973 COLONOSCOPY - COLON CA SCREENING 1973 CT COLONOGRAPHY - COLON CA SCREENING 1973 Colorectal Cancer Screening 1973 FIT - COLON CA SCREENING 1973 FLEX SIG - COLON CA SCREENING 1973 LIPID TESTING 1973 MAMMOGRAM 1973 HIV SCREENING 1988 HEPATITIS C SCREENING 08/01/1991 DTAP/TDAP/TD VACCINES (1 - Tdap) 1992 HEPATITIS B VACCINE (1 of 3 - 19+ 3-dose series) 1992 PNEUMOCOCCAL VACCINE 50+ (1 of 1 - PCV) 08/06/2023 ZOSTER VACCINE (1 of 2) 08/06/2023 COVID-19 VACCINE (1 - 2023-2 5 season) 2023 DEPRESSION SCREENING 04/04/2024 INFLUENZA VACCINE (Season Ended) 2024 HIB VACCINE Aged Out No longer eligi ble based on patient's age to complete this topic HPV VACCINE Aged Out No longer eligi ble based on patient's age to complete this topic MENINGOCOCCAL (Group B) VACC INE SHARED DECISION-MAKING Aged Out No longer eligibl e based on patient's age to complete this topic MENINGOCOCCAL GROUPS A/C/Y/W VACCINE Aged Out No longer eligible b ased on patient's age to complete this topic Insurance [employer] Care Teams Registered Radiation Therapist Relationship Specialty Start Date End Date Essence Bowles MD [address] [place] [address] [address] [place] [address] PCP - General 08/29/19
--- OUTSIDE RECORDS SUMMARY | 2024-08-21 15:31 | XMS_ITS | Clinical Summary ---
Author Organization [facility] [place] [address] [place] [address] Care Team Providers Care Histologist Name Role Phone Unavailable Primary Care Provider Unavailabl e Social History Tobacco Use Types Packs/Day Years Used Date Smoking Tobacco: Never Assessed Comments Unknown Sex and Gender Information Value Date Recorded Sex Assigned at Not on file Legal Sex Female 12:42 AM PST Gender Identity Not on file Sexual Orientation Not on file Plan of Treatment Not on file
--- OUTSIDE RECORDS SUMMARY | 2024-08-21 15:31 | XMS_ITS | Clinical Summary ---
Author Organization [facility] Address [address] [place] [phone] Care Team Providers Care Design Draftsman Name Role Phone [facility], External Provider Primary Care Provider Un available Allergies Active Allergy Reactions Criticality Noted Date Comments Amoxicillin Other (See Comments) 08/31/2016 Migraine Amoxicillin-Pot Clavulanate Headache Low 09/29/19 19 Cephalexin Rash Low 08/31/2016 Codeine Hypertension Medium 09/28/2018 Potassium Headache Low 08/31/2016 Potassium Clavulanate Hives High 04/29/2014 Telithromycin Other (See Comments) 08/31/2016 Vision Loss Medications amLODIPine (NORVASC) 10 mg tablet Take 10 mg by mouth daily. Active metoprolol tartrate (LOPRESSOR) 25 mg tablet Take 25 mg by mouth 2 times daily. Active dextroamphetamine -amphetamine (ADDERALL) 20 mg tablet Take 20 mg by mouth daily. Active albuterol (VENTOLIN INHALATION) Take by inhalation. Active budesonide-formot roxana (SYMBICORT) 80-4.5 mcg/actuation HFA Aerosol Inhaler Take 2 Puffs by inhalation 2 times daily. Active cholecalciferol, Vitamin D3, 2,000 unit Tablet Take by mouth. Act nery vitamin E 400 unit capsule Take 400 Units by mouth daily. Active Biotin 1 mg Tablet Take by mouth. Activ e HYDROcodone-aceta minophen (NORCO) 5-325 mg tablet Take 1 Tablet by mouth every 4 hours as needed for Pain, Moderate. Active atorvastatin (LIPITOR) 20 mg tablet Take 20 mg by mouth daily at bedtime. 0 Active gabapentin (NEURONTIN) 300 mg capsule TAKE 1 CAP DAILY X1 WEEK, THEN 1 CAP TWICE A DAY X1 WEEK, THEN 1 CAP 3 TIMES A DAY THEREAFTER 0 Active ipratropium-albut Roxana (DUONEB) 0.5 mg-3 mg(2.5 mg base)/3 mL Solution for Nebulization USE 1 VIAL VIA NEBULIZER 4 TIMES A DAY 0 Active aspirin (ONDINA CHEWABLE) 81 mg Tablet, Chewable Take 81 mg by mouth daily. Active Active Problems No known active problems Social History Tobacco Use Types Packs/Day Years Used Date Smoking Tobacco: Every Day Cigarettes Smokeless Tobacco: Never Alcohol Use Standard Drinks/Week Comments Not Currently 0 (1 standard drink = 0.6 oz pur e alcohol) Comments No Sex and Gender Information Value Date Recorded Sex Assigned at Not on file Legal Sex Female 11:38 AM CDT Gender Identity Not on file Sexual Orientation Not on file Last Filed Vital Signs Vital Sign Reading Time Taken Comments Blood Pressure 144/87 07/24/2019 12:11 PM CDT Pulse 105 07/24/2019 12:11 PM CDT Temperature 36.6 C (97.9 F) 07/24/2019 12:11 PM CDT Respiratory Rate 16 07/24/2019 12:11 PM CDT Oxygen Saturation 97% 07/24/2019 12:11 PM CDT Inhaled Oxygen Concentration - - Weight 81.6 kg (180 lb) 01/13/2019 6:56 PM CDT Height 165.1 cm (5' 5 ) 01/13/2019 6:56 PM CDT Body Mass Index 29.95 01/13/2019 6:56 PM CDT Plan of Treatment Health Maintenance Due Date Last Done Comments DTAP/TDAP/TD VACCINES (1 - Tdap) 1992 HEPATITIS B VACCINES (1 of 3 - 19+ 3-dose series) 07/1992 HPV/Cotest (21-29) 1994 CERVICAL CANCER SCREENING 08/06/2003 HPV/Cotest (30-65) 08/06/2003 PAP SMEAR 08/06/2003 BREAST CANCER SCREENING 2013 COLORECTAL SCREENING 2018 Colorectal Cancer Screening 2018 FIT-DNA Q 3 years 2018 FIT/FOBT Q 1 year 2018 Flex Sig/CT Colonography Q 5 years 2018 ZOSTER VACCINE (1 of 2) 08/06/2023 INFLUENZA VACCINE (#1) 2023 Insurance [employer] [place] Care Teams Design Draftsman Relationship Specialty Start Date End Date [facility], External Provider [address] [place] [address] PCP - General 09/28/18
--- OUTSIDE RECORDS SUMMARY | 2024-08-21 15:31 | XMS_ITS | CONTINUITY OF CARE DOCUMENT ---
Author Name kim alvarez Address Unknown Organization [facility] Address [address] [address] [address] [place] [address] Phone [phone] Care Team Providers Care Recreational Therapy Technician Name Role Phone Wei DREW, Edmundo Unavailable MARGAUX DREW, [place] Unavailable [phone] DE DAMICO MD Unavailable PROBLEMS Condition Status Date Provider Notes Hypertriglyceridemia active Edmundo Luis Macrocytosis active Edmundo Carvajal MD nml b1 2 Venous hypertension - BLE inflammation active Edmundo Carvajal MD Hypertension active Velia Jean NP Hyperlipidemia;NEG CRP and lpa active Edmundo Carvajal MD intol tos lipotir Family Hx heart disease active Edmundo smith MD dad COPD active Velia Jean NP ADHD active 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 Migraines active Velia Jean NP IBS active Velia Jean NP CAD active Edmundo Carvajal MD PVD; active Edmundo Carvajal MD Tobacco use, quit active 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 Screening active Edmundo Carvajal MD Hypokalemia completed - Edmundo Carvajal MD IRON DEFICIENCY active Edmundo Carvajal MD covid 19;2020;HAD VACCINE active Edmundo joseph MD Overweight active Edmundo Carvajal MD Vitamin D deficiency active Edmundo Luis Arrhythmia;NML TSH active Edmundo Carvajal MD Edema completed - Edmundo Carvajal MD Sleep apnea active Edmundo Carvajal MD Venous insufficiency completed - Edmundo Carvajal MD Diastolic CHF active Edmundo Carvajal MD on ja rdicne Bradycardia - sinus duet ot bb ;nml tsh completed - Edmundo Carvajal MD ENCOUNTERS Date Type Provider Location Encounter Diag nosis - In-person encounter Office Visit Edmundo Carvajal MD [facility] Office Arrhythmia;NML TSHBradycardi a - sinus duet ot bb ;nml tsh - In-person encounter Office Visit Edmundo Carvajal MD [facility] Office OverweightDiastolic CHF - In-person encounter Office Visit Edmundo Carvajal MD [facility] [place] Office HypokalemiaEdemaVenous insufficiency - In-person encounter Office Visit Edmundo Carvajal MD [facility] Office Hyperlipidemia;NEG CRP and lpaFamily Hx heart diseasePVD;ScreeningIRON DEFICIENCYcovid ;HAD VACCINEOverweightVitamin D deficiencyArrhythmia;NML TSHSleep apnea - In-person encounter Office Visit Edmundo Carvajal MD [place] [facility] HypertensionHyperlipidemia;NEG CRP and lpaFamily Hx heart diseaseCOPDADHDMigrainesIBSCAD PVD;Tobacco use, quit VITAL SIGNS Date Observation Value Provider Body Mass Index (Ratio) 28.98 kg/m2 Gopi Carvajal MD blood pressure, diastolic 82 mm[Hg] Ky abhi Arreaga blood pressure, systolic 127 mm[Hg] Sondra Arreaga oxygen saturation, oximetry 97 % Puneet Arreaga respiratory rate E&M 12 /min Karthiklia G raham pulse rate 57 /min Kylia Gibson weight E&M 163.6 [lb_av] Kylia Gibson blood pressure, cuff size regular Karthik Rainam height E&M 63 [in_i] Karthiklia Gibson Body Mass Index (Ratio) 29.76 kg/m2 Gopi Carvajal MD weight E&M 168 [lb_av] Edmundo William D blood pressure, diastolic 95 mm[Hg] Li nkLogic blood pressure, systolic 135 mm[Hg] Madison kLogic blood pressure, diastolic 95 mm[Hg] Karthik Rainam blood pressure, systolic 135 mm[Hg] Sondra Rainam oxygen saturation, oximetry 98 % Karthiklia Gibson pulse rate 70 /min Karthiklia Gibson respiratory rate E&M 12 /min Karthiklia Marichuy raham blood pressure, cuff size regular Karthik Rainam height E&M 63 [in_i] Karthiklia Gibson Body Mass Index (Ratio) 30.47 kg/m2 Gopi Carvajal MD pulse rate 76 /min Alix Funez blood pressure, cuff size regular jennie Funez blood pressure, diastolic 78 mm[Hg] jennie Funez blood pressure, systolic 114 mm[Hg] [facility] shaggy Funez oxygen saturation, oximetry 96 % Alix Funez respiratory rate E&M 20 /min Alix Funez weight E&M 172 [lb_av] Alix Funez height E&M 63 [in_i] Alix Funez Body Mass Index (Ratio) 30.85 kg/m2 Gopi Carvajal MD blood pressure, diastolic 88 mm[Hg] [facility] isac Rendon blood pressure, systolic 133 mm[Hg] Miguel Angel Rendon oxygen saturation, oximetry 97 % Esperanza Rendon respiratory rate E&M 18 /min Esperanza mains pulse rate 69 /min Esperanza Rendon weight E&M 174.2 [lb_av] Esperanza Rendon height E&M 63 [in_i] Esperanza Justice Body Mass Index (Ratio) 30.64 kg/m2 Gopi Carvajal MD blood pressure, diastolic 91 mm[Hg] Mary nkLogjenae blood pressure, systolic 140 mm[Hg] Madison kLogjenae blood pressure, resting Yes Vera aakash Jean OCCUPATIONAL HEALTH AND SAFETY MANAGER blood pressure, diastolic 91 mm[Hg] Colleen Cruz blood pressure, systolic 140 mm[Hg] Kyree truman Cruz oxygen saturation, oximetry 97 % Luz Cruz pulse rate 78 /min Luz luis height E&M 63 [in_i] Luz luis weight E&M 173 [lb_av] Luz luis respiratory rate E&M 16 /min Lynsey Cruz blood pressure, cuff size large Colleen Cruz ALLERGIES Allergy Name Onset Date Reaction Criticality Status LIPITOR Low Criticality active TRAMADAL High Criticality active CODEINE High Criticality active RESULTS Date Observation Value Provider Reference Range Interpretation Location pro brain natriuretic peptide 248 pg/mL Link[facility] 0-249 lipoprotein, beta, serum, point, quantitative, calculated 22 mg/dL [facility] 0-99 HDL cholesterol, serum 30 mg/dL [facility] >39 Low triglyceride, serum, random 121 mg/dL [facility] 0-149 cholesterol, serum 74 mg/dL [facility] 100-199 Low HISTORY OF MEDICATION USE Medication Status Instructions Dates Provider Indications Com ments Entresto 97-103 mg tablet active Take 1 tablet by mouth twice a day Araceli Crooks rosuvastatin 5 mg tablet active TAKE 1 TABLET BY MOUTH EVERY DAY Edmundo Carvajal MD Nexlizet 180 mg-10 mg tablet active TAKE 1 TABLET BY MOUTH DAILY Edmundo Carvajal MD FeroSul 325 mg (65 mg iron) tablet active TAKE 1 TABLET BY MOUTH ONCE DAILY Edmundo Carvajal MD Jardiance 10 mg tablet active Take 1 tablet by mouth once a day Edmundo Carvajal MD FeroSul 325 mg (65 mg iron) tablet active TAKE 1 TABLET BY MOUTH ONCE DAILY Angie Parks Vascepa 1 gram capsule active TAKE 2 CAPSULES BY MOUTH TWICE DAILY Edmundo Carvajal MD Nexlizet 180-10 mg tablet active TAKE 1 TABLET BY MOUTH DAILY Anabella Johnson rosuvastatin 5 mg tablet active TAKE 1 TABLET BY MOUTH EVERY DAY Araceli Crooks metoprolol succinate 25 mg tablet extended release 24 hr active Take 1 tablet by mouth once a day Edmundo Carvajal MD Entresto 97-103 mg tablet completed Take 1 tablet by mouth once a day - Araceli Crooks losartan 50 mg tablet completed Take 1 tablet by mouth once a day - Edmundo Carvajal MD Vascepa 1 gram capsule completed Take 2 capsule by mouth twice a day - Anabella Johnson Jardiance 10 mg tablet completed 1 tablet by mouth once a day - Araceli Crooks Crestor 5 mg tablet completed Take 1 tablet by mouth once a day - Araceli Crooks losartan 50 mg tablet completed TAKE 1 TABLET BY MOUTH DAILY - Araceli Crooks Feosol 325 mg (65 mg iron) tablet completed Take 1 tablet by mouth once a day - Angie Parks Nexlizet 180-10 mg tablet completed Take 1 tablet by mouth once a day - Anabella Johnson LILLIE Symbicort 160-4.5 mcg/actuation HFA aerosol inhaler active Velia Jean NP dicyclomine 20 mg tablet completed - Edmundo Carvajal MD dantrolene 25 mg capsule completed - Edmundo Carvajal MD albuterol sulfate 90 mcg/actuation HFA aerosol inhaler active Velia Jean NP metoprolol succinate 25 mg tablet extended release 24 hr completed TAKE 1 TABLET BY MOUTH EVERY DAY - Araceli Crooks ascorbic acid (vitamin C) 1,000 mg tablet completed - Edmundo Carvajal MD dextroamphetami ne-amphetamine 20 mg tablet active Velia Jean NP econazole 1% cream active as needed as directed Edmundo Carvajal MD amlodipine 5 mg tablet completed - Edmundo Carvajal MD sumatriptan succinate 100 mg tablet active Velia Jean NP atorvastatin 20 mg tablet completed - Edmundo Carvajal MD aspirin 81 mg tablet,delayed release (DR/EC) active Take 1 tablet by mouth once a day Edmundo Carvajal MD Vitamin D3 125 mcg (5,000 unit) tablet active 1 tablet by mouth once a day Edmundo Carvajal MD vitamin E (dl, acetate) 180 mg (400 unit) capsule completed 1 capsule by mouth once a day - Edmundo Carvajal MD SOCIAL HISTORY Date Observation Value Provider drug use no Edmundo Luis alcohol use yes Edmundo Luis smoking status Never smoker Edmundo Carvajal MD drug use no Edmundo Luis alcohol use yes Edmundo Luis smoking status Never smoker Edmundo Carvajal MD social history E&M S moking History: Amelia peters has never smoked. Edmundo Carvajal MD social history reviewed E&M revi ewed - no changes required Edmundo Carvajal MD smoking status Never smoker Alix Funez quit smoking, stage quit Edmundo cerda MD social history E&M S moking History: Amelia peters is a former smoker. Edmundo Carvajal MD social history reviewed E&M revi ewed - no changes required Edmundo Carvajal MD smoking, year quit 2018 Esperanza Ayoub is number of years as a smoker 20 a Esperanza Justice smoking history, tot al pack/year 20 Esperanza Justice smoking history, tot al pack/day 1 Esperanza Justice cigarette use yes Esperanza Justice smoking status Former smoker Esperanza Justice number of years as a smoker 20 a Verqueenie Bonabhaktiri OCCUPATIONAL HEALTH AND SAFETY MANAGER smoking history, tot al pack/year 20 Verqueenie Bonareri OCCUPATIONAL HEALTH AND SAFETY MANAGER smoking history, tot al pack/day 1 Verah Bonareri OCCUPATIONAL HEALTH AND SAFETY MANAGER social history reviewed E&M revi ewed - no changes required Velia Bonareri OCCUPATIONAL HEALTH AND SAFETY MANAGER social history E&M S moking History: Amelia peters is a former smoker. Verqueenie Bonareri OCCUPATIONAL HEALTH AND SAFETY MANAGER drug use no Verah Bonareri OCCUPATIONAL HEALTH AND SAFETY MANAGER alcohol use yes Verah Bonareri OCCUPATIONAL HEALTH AND SAFETY MANAGER smoking, year quit 2018 Luz Cruz cigarette use yes Luz [place] nd smoking status Former smoker Luz palmer FUNCTIONAL STATUS Date Observation Value Provider HRA, CV Assess/Plan, Angina (inactive) Management Plan continue current therapy Edmundo Carvajal MD HRA, CV Assess/Plan, Angina (inactive) Management Plan continue current therapy Edmundo Carvajal MD HRA, CV Assess/Plan, Angina (inactive) Management Plan continue current therapy Edmundo Carvajal MD HRA, CV Assess/Plan, Angina (inactive) Management Plan continue current therapy Edmundo Carvajal MD INSURANCE PROVIDERS Payer name Policy type / Coverage type Duarte red constitution party ID [facility] [id number] ADVANCE DIRECTIVES Name Date DISCUSSED - NO DECISION MADE TREATMENT PLAN Date Name Performer [id number],S, Edmundo smith MD [id number],S, e ng egfr n eg alubmin h igh dd and neg ct pe n eg b12 e ng a2c n eg uacr Edmundo Carvajal MD [id number],B, Edmundo smith MD [id number],B, u p to date on colon Edmundo Carvajal MD [id number],S,neg holter Lomeli nora Carvajal MD [id number],S, Edmundo smith MD [id number],B, t race ai on cath Edmundo Carvajal MD [id number],S, s core 1, fixed defect normal cor Edmundo Carvajal MD [id number],S, p ap 37 due ot lvedp of 20 Edmundo Carvajal MD [id number],S, n ml pro lvedp 20 Edmundo Carvajal MD [id number],S, m ild Edmundo Carvajal MD [id number],C,mild Edmundo S zaida DREW [id number],C,trace ai on c ath Edmundo Carvajal MD [id number],C,pap 37 due ot lvedp of 20 Edmundo Carvajal MD [id number],C,nml pro lvedp 20 Edmundo Carvajal MD [id number],C,score 1, fixe d defect normal cor Edmundo Gamboaluis DREW [id number],S,sx Edmundo Ser paleobotanist [id number],S,neg pro and u acr adn albuimin Edmundo Gamboaluis DREW [id number],S,3.3 Edmundo Se rota [id number],S,e ng egfr n ml pro h igh dd and neg ct pe n eg b12 e ng a2c n eg uacr Edmundo Gamboaluis DREW [id number],C,up to date on colon Edmundo Gamboaluis DREW [id number],B, Edmundo Serot a [id number],S, Edmundo Serot a [id number],S, a thtero with neg arely ands senlsiae Edmundo Gamboaluis DREW [id number],S, s core 1 fixxed deffectg Edmundo Carvajal [id number],C,score 1 fixxe d deffectg Edmundo Gamboaluis DREW [id number],C,on sensliase Edmundo Gamboaluis DREW [id number],C,fixed defect Edmundo Gamboaluis DREW [id number],C,athtero with neg arely Edmundo Gamboaluis DREW [id number],C,Quit smoking about 5-6 years go. 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 [id number],C,M anaged per PCP. Will check PFTs. H er updated medication list for this problem includes: Symbicort 160-4.5 Mcg/actuation Hfa Aerosol Inhaler (Budesonide-formoterol) Albuterol Sulfate 90 Mcg/actuation Hfa Aerosol Inhaler (Albuterol sulfate) 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 [id number],C,F ather had from an [place]. He had tripple bypass done. Velia Jean NP [id number],C,W ill check labs and CT Calcium score H er updated medication list for this problem includes: Atorvastatin 20 Mg Tablet (Atorvastatin) Velia Jean NP [id number],C, H er updated medication list for this problem includes: Metoprolol Succinate 25 Mg Tablet Extended Release 24 Hr (Metoprolol succinate) Amlodipine 5 Mg Tablet (Amlodipine) Aspirin 81 Mg Tablet,delayed Release (dr/ec) (Aspirin) ..... Take 1 tablet by mouth once a day BP today: 140/91 Velia Jean NP [id number],C,P atient has bilateral calf pain with walking for a few years now. W ill check arterial duplex/Sensilase and labs. Velia Jean PAOLO [id number],C,E KG in office shows NSR. Troponin ~ 1 month ago at the ER were negative. W ill check echo, stress and labs. H er updated medication list for this problem includes: Metoprolol Succinate 25 Mg Tablet Extended Release 24 Hr (Metoprolol succinate) Amlodipine 5 Mg Tablet (Amlodipine) Aspirin 81 Mg Tablet,delayed Release (dr/ec) (Aspirin) ..... Take 1 tablet by mouth once a day Velia Gillespiechriss BOONE Cardiology:mod to severe Edmundo Carvajal MD Cardiology: o n sensliase Edmundo Carvajal MD Cardiology: e ng egfr n eg alubmin h igh dd and neg ct pe n eg b12 e ng a2c n eg uacr Edmundo Carvajal MD Cardiology: T he patient is between 50-77 years old and has smoked at least 20 pack years. The patient is either a current smoker or has quit within the past 15 years. T he patient is recommended to have low dose CT scan for lung cancer screening. Has been counseled regarding the importance of tobacco cessation and abstinence. Shared decision making during this office visit included discussion of the benefits and harms of screening, possible future recommendations of follow-up diagnostic testing, and total amount of radiation exposure. The patient was recommended to have annual low dose CT scan for lung cancer screening and is willing to undergo diagnosis and treatment. Edmundo Carvajal MD Cardiology: u p to date on colon Edmundo Carvajal MD Cardiology Edmundo Carvajal MD Cardiology Edmundo Carvajal MD Cardiology: d id not like cpap Edmundo Carvajal MD Cardiology: p ro 248, ef ef 60 lvep 20 Edmundo Carvajal MD Cardiology: s core 1, fixed defect normal cor 23 Edmundo Carvajal MD Cardiology:sbrad due to rx, svt 13 beats, vt 5 beats Edmundo Carvajal MD Cardiology: H er updated medication list for this problem includes: Vascepa 1 Gram Capsule (Icosapent ethyl) ..... Take 2 capsule by mouth twice a day Nexlizet 180-10 Mg Tablet (Bempedoic acid-ezetimibe) ..... Take 1 tablet by mouth once a day Crestor 5 Mg Tablet (Rosuvastatin) ..... Take 1 tablet by mouth once a day C HOL: 74 (12/14/2023) LDL: 22 (12/14/2023) HDL: 30 (12/14/2023) T (12/14/2023) Edmundo Carvajal MD :pro 248, ef ef 60 lvep 20 Al Carvajal MD Cardiology: n eg holter Edmundo Carvajal MD Cardiology:ef 60 n ml pro lvedp 20 Edmundo Carvajal MD Cardiology:The patie nt is between 50-77 years old and has smoked at least 20 pack years. The patient is either a current smoker or has quit within the past 15 years. T he patient is recommended to have low dose CT scan for lung cancer screening. Has been counseled regarding the importance of tobacco cessation and abstinence. Shared decision making during this office visit included discussion of the benefits and harms of screening, possible future recommendations of follow-up diagnostic testing, and total amount of radiation exposure. The patient was recommended to have annual low dose CT scan for lung cancer screening and is willing to undergo diagnosis and treatment. Edmundo Carvajal MD Cardiology: e ng egfr n eg alubmin h igh dd and neg ct pe n eg b12 e ng a2c n eg uacr Edmundo Carvajal MD Cardiology: p ap 37 due ot lvedp of 20 Edmundo Carvajal MD Cardiology Edmundo Carvajal MD Cardiology: s core 1, fixed defect normal cor Edmundo Carvajal MD Cardiology: a thtero with neg arely ands senlsiae Edmundo Carvajal MD Cardiology Edmundo Carvajal MD Cardiology Edmundo Carvajal MD Cardiology: u p to date on colon Edmundo Carvajal MD Cardiology:mod Edmundo Carvajal MD Cardiology Edmundo Carvajal MD Cardiology:did not like cpap Mega Carvajal MD Cardiology Edmundo Carvajal MD Cardiology: e ng egfr n eg alubmin h igh dd and neg ct pe n eg b12 e ng a2c n eg uacr Edmundo Carvajal MD Cardiology dEmundo Carvajal MD Cardiology: u p to date on colon Edmundo Carvajal MD Cardiology:neg holter Edmundo joseph MD Cardiology Edmundo Carvajal MD Cardiology: t race ai on cath Edmundo Carvajal MD Cardiology: s core 1, fixed defect normal cor Edmundo Carvajal MD Cardiology: p ap 37 due ot lvedp of 20 Edmundo Carvajal MD Cardiology: n ml pro lvedp 20 Edmundo Carvajal MD Cardiology: m ild Edmundo Carvajal MD :mild Edmundo Carvajal MD :trace ai on cath Edmundo Carvajal MD :pap 37 due ot lvedp of 20 Al Carvajal MD :nml pro lvedp 20 Edmundo Carvajal MD :score 1, fixed defect normal co r Edmundo Carvajal MD Cardiology;rlhc with root frist: sx Edmundo Carvajal MD Cardiology;rlhc with root frist:neg pro and uacr adn albuimin Edmundo Carvajal MD Cardiology;rlhc with root frist: 3.3 Edmundo Carvajal MD Cardiology;rlhc with root frist:eng egfr n ml pro h igh dd and neg ct pe n eg b12 e ng a2c n eg uacr Edmundo Carvajal MD Cardiology;rlhc with root frist: up to date on colon Edmundo Carvajal MD Cardiology;rlhc with root frist Edmundo Carvajal MD Cardiology;rlhc with root frist Edmundo Carvajal MD Cardiology;rlhc with root frist: a thtero with neg arely ands senlsiae Edmundo Carvajal MD Cardiology;rlhc with root frist: s core 1 fixxed deffectg Edmundo Carvajal MD :score 1 fixxed deffectg Edmundo Carvajal MD :on sensliase Edmundo Carvajal MD :fixed defect Edmundo Carvajal MD :athtero with neg arely Edmundo joseph MD Cardiology-sen with OCCUPATIONAL HEALTH AND SAFETY MANAGER:Quit smok ing about 5-6 years go. Velia Jean NP Cardiology-sen with OCCUPATIONAL HEALTH AND SAFETY MANAGER:Managed per PCP. Will check PFTs. H er updated medication list for this problem includes: Symbicort 160-4.5 Mcg/actuation Hfa Aerosol Inhaler (Budesonide-formoterol) Albuterol Sulfate 90 Mcg/actuation Hfa Aerosol Inhaler (Albuterol sulfate) Velia Jean NP Cardiology-sen with OCCUPATIONAL HEALTH AND SAFETY MANAGER:Father had from an [place]. He had tripple bypass done. Velia Jean NP Cardiology-sen with OCCUPATIONAL HEALTH AND SAFETY MANAGER:Will check labs and CT Calcium score H er updated medication list for this problem includes: Atorvastatin 20 Mg Tablet (Atorvastatin) 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 Cardiology-sen with OCCUPATIONAL HEALTH AND SAFETY MANAGER: H er updated medication list for this problem includes: Metoprolol Succinate 25 Mg Tablet Extended Release 24 Hr (Metoprolol succinate) Amlodipine 5 Mg Tablet (Amlodipine) Aspirin 81 Mg Tablet,delayed Release (dr/ec) (Aspirin) ..... Take 1 tablet by mouth once a day BP today: 140/91 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 Cardiology-sen with OCCUPATIONAL HEALTH AND SAFETY MANAGER:Patient has bilateral calf pain with walking for a few years now. W ill check arterial duplex/Sensilase and labs. 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 Cardiology-sen with OCCUPATIONAL HEALTH AND SAFETY MANAGER:EKG in office shows NSR. Troponin ~ 1 month ago at the ER were negative. W ill check echo, stress and labs. H er updated medication list for this problem includes: Metoprolol Succinate 25 Mg Tablet Extended Release 24 Hr (Metoprolol succinate) Amlodipine 5 Mg Tablet (Amlodipine) Aspirin 81 Mg Tablet,delayed Release (dr/ec) (Aspirin) ..... Take 1 tablet by mouth once a day 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 Date Name Holter Monitor 24 Hr BASIC METABOLIC PANE L W/EGFR Low Dose Lung CT FOLATE, SERUM CXR- PA/Lat PROBNP, N TERMINAL Monitor - Telemetry (Mobile Cardiac) LIPID PANEL Complete Echo DLCO - 92743 FRC - 64763 FVC - [address] LIPID PANEL DLCO - 20319 FRC - 87232 FVC - 49943 Sleep Study Titratio n Holter Monitor 24 Hr Sleep Study Home RT & LT HRT CATH Venous Doppler Bilat eral LE - Reflux AORTIC ROOT PROTHROMBIN TIME WIT H INR CBC (INCLUDES DIFF/P LT) BASIC METABOLIC PANE L W/EGFR [facility] [employer] PROCED URES CXR- PA/Lat DLCO - 46352 FRC - 79216 FVC - 12454 D-DIMER, QUANTITATIV E CT, Coronary Calcium Score DLCO - 28883 FRC - 86957 FVC - 96569 Arterial Duplex Bi-L ower EX Arterial - SENSILASE VITAMIN B12 Vitamin D, 25-Hydrox y LIPID PANEL Lipoprotein (a) CRP, high sensitivit y HEMOGLOBIN A1c Microalb/Creatinine Urine, Random IRON AND TOTAL IRON BINDING CAPACITY FERRITIN CBC (INCLUDES DIFF/P LT) COMPREHENSIVE METABO LIC PANEL, W/EGFR PROBNP, N TERMINAL Stress Regadenoson Complete Echo HISTORY OF PROCEDURES Procedure Date Procedure Name Provider Procedure Notes S tatus Counseling LDCT Edmundo Carvajal MD oct com pleted Complex e/m visit add on Edmundo Carvajal MD completed Spirometry Edmundo Carvajal MD complete d FVC / MVV with bronchodilator - 66745 Edmundo Carvajal MD completed BLOOD COUNT HEMOGLOBIN Edmundo Carvajal MD completed SpO2 w/o 6min walk/titration Edmundo Carvajal MD completed SVC - 07099 Edmundo Carvajal MD complet ed DLCO - 50137 Edmundo Carvajal MD comple yovanny Complex e/m visit add on Edmundo Carvajal MD completed Counseling LDCT Edmundo Carvajal MD com pleted EKG Edmundo Carvajal MD complete d Spirometry Edmundo Carvajal MD complete d FVC / MVV with bronchodilator - 76150 Edmundo Carvajal MD completed BLOOD COUNT HEMOGLOBIN Edmundo Carvajal MD completed FRC - 02440 Edmundo Carvajal MD complet ed SpO2 w/o 6min walk/titration Edmundo Carvajal MD completed SVC - 75804 Edmundo Carvajal MD complet ed DLCO - 63738 Edmundo Carvajal MD comple yovanny CT- Coronary CA score Edmundo Carvajal MD completed EKG Edmundo Carvajal MD complete d
--- OUTSIDE RECORDS SUMMARY | 2024-08-21 15:31 | XMS_ITS | Continuity of Care Document ---
Author Organization [facility] Address [address] [place] [address] Phone Care Team Providers Care Electronic Warfare Technician Name Role Phone John Guevara MD Unavailable Unavailable Advance Directives Directive Yes / No Effective Date File Name No Information Encounters Encounter Description Practice Location Reason(s) For Visit Diagnoses Date Provider Providers Copied on Encounter [facility], [address], [place], [place], [id number] , tel: [phone] [facility] No Information Nov-0 9 Ismael John. [address] [place] [address], [id number] , . tel: [phone] [facility], [address], [place], [place], [id number] , tel: [phone] [facility] ALLERGIC RHINITIS NECTOBACCO USE DISORDERINTRINSIC ASTHMA NOS Aug-0 5200 9 Ismael Lopez. [address] [place] [address], [id number] , . tel: [phone] Family History Family Member Type Diagnosis Age At Onset No Information Payers Payer name Insurance type Covered alliance party ID Authoriza tion(s) No Information Social History Type Description Quantity Date Captured Comments Sex Female Smoking Status No Information Chief Complaint And Reason For Visit No Information Reason For Referral Reason For Referral No Information History Of Present Illness Encounter Date Complaint History Of Prese nt Illness No Information Functional Status Date Functional Assessmen t No Information Instructions Date Instruction Additional Infor mation No Information Assessments Type Assessment Date No Information Patient Care Teams Name Effective Dates (start - stop) Status Members No Information
--- OUTSIDE RECORDS SUMMARY | 2024-08-21 15:31 | XMS_ITS | Encounter Summary ---
Author Organization [facility] [place] [address] [place] [address] Care Team Providers Care Spray Gun Sizer Name Role Phone Unavailable Primary Care Provider Unavailabl e Prior Encounters Date Type Department Care Team Description 04/23/2019 Converted CPS Chart Documents [facility] [address] [id number] <No scans attached> 04/23/2019 Converted 13x Documents [facility] [address] [id number] <No scans attached> Plan of Treatment Not on file Procedures Procedure Name Priority Date/Time Associated Diagnosis Comments ORAL SURG CONSULT Routine 10/18/2018 2:0 0 AM CDT 6 EXTRACTION, ERUPTED TOOTH REQUIRING REMOVAL OF BONE AND/OR SECTIONING OF TOOTH Routine 10/18/2018 2:00 AM CDT 5 EXTRACTION, ERUPTED TOOTH REQUIRING REMOVAL OF BONE AND/OR SECTIONING OF TOOTH Routine 10/18/2018 2:00 AM CDT THERAPEUTIC PARENTERAL DRUGS, TWO OR MORE ADMINISTRATIONS, DIFFERENT MEDICATIONS Routine 10/18/2018 2:00 AM CDT DEEP SEDATION/GENERAL ANESTHESIA EACH SUBSEQUENT 15 MINUTE INCREMENT Routine 10/18/2018 2:00 AM CDT DEEP SEDATION/GENERAL ANESTHESIA EACH SUBSEQUENT 15 MINUTE INCREMENT Routine 10/18/2018 2:00 AM CDT DEEP SEDATION/GENERAL ANESTHESIA FIRST 15 MINUTES Routine 10/18/2018 2:00 AM CDT 21 LIMITED ORAL EVALUATION - PROBLEM FOCUSED Routine 10/02/2018 2:00 AM CDT 13 LIMITED ORAL EVALUATION - PROBLEM FOCUSED Routine 10/02/2018 2:00 AM CDT 6 LIMITED ORAL EVALUATION - PROBLEM FOCUSED Routine 10/02/2018 2:00 AM CDT 5 LIMITED ORAL EVALUATION - PROBLEM FOCUSED Routine 10/02/2018 2:00 AM CDT PANORAMIC RADIOGRAPHIC IMAGE Routine 10/02/2018 2:00 AM CDT BITEWINGS - TWO RADIOGRAPHIC IMAGES Routine 10/02/2018 2:00 AM CDT SINGLE X-RAY Routine 10/02/2018 2:00 AM CDT Visit Diagnoses Not on file
--- OUTSIDE RECORDS SUMMARY | 2024-08-21 15:31 | XMS_ITS | Clinical Summary ---
Author Organization [facility] Address [address] [address] Phone Care Team Providers Care Piano And Organ Refinisher Name Role Phone Kaiden Feliciano Isidro TRAVIS Primary Care Provider [phone] Allergies Active Allergy Reactions Criticality Noted Date Comments Amoxicillin Other (see Comments) 08/31/2016 Migraine Amoxicillin-Pot Clavulanate Other (see Comments),Unknown Low 08/17/2019 Migraines Atorvastatin Other (see Comments) Low 11/03/2022 Flu like sx Cephalexin Rash Medium 08/31/2016 Ciprofloxacin Hives,Unknown Low 11/20/2020 Clavulanic Acid Hives,Rash High 04/29/2014 Codeine Palpitations,Other (see Comments) Low 08/15/2019 High B/P and HR Increases my BP and my pulse Metronidazole Rash 10/04/2022 Sulfamethoxazole-Trimeth oprim Other (see Comments),Shortness of Breath High 08/15/2023 Telithromycin Other (see Comments),Unknown Medium 08/31/2016 Vision Loss Tramadol Other (see Comments),Itching,Pa lpitations Low 08/15/2023 Medications ipratropium-albut roxana (DUO-NEB) 0.5-2.5 (3) MG/3ML Solution by Nebulization route 4 times daily as needed. Active SUMAtriptan (IMITREX) 100 MG Tablet Take 100 mg by mouth daily as needed for Migraine. Use as directed. May repeat dose in 2 hours if headache recurs. Active Cholecalciferol (VITAMIN D-3 PO) Take 4,000 Units by mouth every morning. Active Vitamin E 400 UNIT Tablet Take by mouth every morning. Active Aspirin 81 MG Tablet Take 81 mg by mouth every morning. Active metoprolol Succinate (TOPROL-XL) 25 MG TABLET SR 24 HR Take 25 mg by mouth every morning. 06/29/19 20 Active Ascorbic Acid (Vitamin C) 1000 MG Tablet Take by mouth daily. 04/04/18 70 Active Nexlizet 180-10 MG Tablet Take 1 Tablet by mouth daily. Active Biotin 10 MG Tablet Take 2,000 mcg by mouth daily. Active vitamin b-12 (Cyanocobalamin) 500 MCG Tablet Take 1 Tablet by mouth daily. Active docusate sodium 100 MG Capsule Take 100 mg by mouth daily. Active FeroSul 325 (65 Fe) MG Tablet Take 325 mg by mouth daily. Active Empagliflozin (JARDIANCE) 10 MG Tablet Take 10 mg by mouth daily. Active econazole nitrate 1 % Cream as needed. 04/04/18 70 Active Vascepa 1 g Capsule Take by mouth 2 times daily. Active Vit-Fe Rpfpexl-UF-LHI (Ultra Vit/Min + DHA) 23-0.8-200 MG Capsule Take 1 Capsule by mouth daily. Active rosuvastatin (CRESTOR) 5 MG Tablet Take 5 mg by mouth daily. Active Entresto 97-103 MG Tablet Take 1 Tablet by mouth daily. 12/13/19 24 Active Ventolin HFA 108 (90 Base) MCG/ACT Aerosol Solution take 2 Puffs by inhalation every 4 hours as needed for Wheezing or Cough. 18 g 1 05/23/19 25 Active Fluticasone Furoate-Vilantero l (Breo Ellipta) 100-25 MCG/ACT AEROSOL POWDER, BREATH ACTIVATEDIndicati ons:Chronic obstructive pulmonary disease with acute exacerbation (HCC) take 1 Puff by inhalation daily. 60 Each 2 06/13/19 25 Active budesonide-formot roxana fumarate (SYMBICORT) 160-4.5 MCG/ACT Aerosol take 2 Puffs by inhalation 2 times daily. 10.2 g 2 06/14/19 25 Active amphetamine-dextr oamphetamine (ADDERALL) 20 MG TabletIndications :Attention deficit hyperactivity disorder (ADHD), predominantly inattentive type Take 1 Tablet by mouth 2 times daily. 60 Tablet 08/01/19 25 Active amphetamine-dextr oamphetamine (ADDERALL) 20 MG TabletIndications :Attention deficit hyperactivity disorder (ADHD), predominantly inattentive type Take 1 Tablet by mouth 2 times daily. 60 Tablet 06/26/19 25 025 Discontin ued(Reord er) Active Problems Problem Noted Date Diagnosed Date Pulmonary hypertension 11/23/2022 Chronic diastolic (congestive) heart failure Overview (05/23/2024): on jardicne Vitamin D deficiency 11/03/2022 Aortic valve regurgitation 09/29/2022 ADHD 09/15/2022 Atherosclerosis of chin[place] ar teries of extremities with intermittent claudication, unspecified extremity 09/15/2022 Atherosclerotic heart diseas e of [place] coronary artery without angina pectoris 09/15/2022 Hypertension 09/15/2022 Hyperlipidemia 09/15/2022 Overview (05/23/2024): intol robin lipotir Chronic obstructive pulmonary disease 07/06/2017 Overview (05/23/2024): 41-year-old female with extensive tobacco use history and COPD her to establish care. She is on a regimen of Symbicort and p.r.n. albuterol. Previously was also taking Spiriva which according to her was helping her symptoms the most. She uses rescue inh Chronic back pain Encounters Date Type Department Care Team Description 07/31/2024 MyChart RX Renewal [facility] [address] [place] [address] Kaiden Feliciano PAC Medication Renewal Declined 06/12/2024 Telephone [facility] [address] [place] [address] Kaiden Feliciano, PAC Medication Management 06/11/2024 Refill [facility] [place] [address] [place] [address] Kaiden Feliciano, PAC Medication Refill 05/31/2024 9:10 AM LEGAL ADVISER Lab [facility] [place] [address] [place] [phone] [address], [address] Discharge Disposition: Discharged to home or Selfcare 05/29/2024 Travel 05/27/2024 Results Follow-Up [facility] [place] [address] [place] [phone] Kaiden Feliciano, PAC CMP (COMPREHENSIVE METABOLIC PANEL), LIPID PANEL, VITAMIN B12, Additional followed-up results: 2 05/26/2024 Travel from Last 3 Months Immunizations Immunization Administration Dates Next Due Influenza Vaccine, MDCK,quad rivalent, pres free 12/17/2022 Influenza Vaccine, Quadrivalent, PF 01/26/2022,0 12/14/2020,12/28/2018 Influenza Vaccine,unspecified Formulation 2017 Influenza, Injectable, Mdck, Preservative Free 01/08/2024 Influenza, Seasonal, Injectable, Undefined 01/18 Pneumococcal conjugate PCV20 , polysaccharide ENZ212 conjugate, adjuvant, PF 05/23/2024 Family History Medical History Relation Name Comments Chronic Obstructive Pulmonary Disease Father Congestive Heart Failure Father Heart Attack Father Hypertension Father Renal Failure Father Cancer Maternal Grandfather lung Cancer Maternal Grandmother endomet Diabetes Maternal Grandmother Cancer Mother pancreatic Crohn's Disease Mother Hypertension Mother Heart Attack Paternal Grandfather Relation Name Status Comments Father Maternal Grandfather Maternal Grandmother Mother Paternal Grandfather Social History Tobacco Use Types Packs/Day Years Used Date Smoking Tobacco: Former Cigarettes 2017 Smokeless Tobacco: Never Tobacco Cessation:Counseling Given: Not Answered Alcohol Use Standard Drinks/Week Comments Not Currently 0 (1 standard drink = 0.6 oz pure alcohol) Pt only drinks on the 05 of October [facility] Utilities Answer Date Recorded In the past 12 months has [employer], oil, or water [employer] threatened to shut off services in your home? Patient declined 05/21/2024 Social Connection and Isolation Panel [NHANES] A nswer Date Recorded In a typical week, how many times do you talk on the phone with family, friends, or neighbors? Patient declined 05/21/2024 How often do you get togethe r with friends or relatives? Patient declined 05/21/2024 How often do you attend pentecostal or anglican serv ices? Patient declined 05/21/2024 Do you belong to any clubs o r organizations such as pentecostal groups, unions, fraternal or athletic groups, or school groups? Patient declined 05/21/2024 How often do you attend meet ings of the clubs or organizations you belong to? Patient declined 05/21/2024 Are you , , di vorced, , never , or living with a partner? Patient declined 05/21/2024 AUDIT-C Answer Date Recorded Q1: How often do you have a drink containing alc ohol? Monthly or less 05/21/2024 Q2: How many drinks containi ng alcohol do you have on a typical day when you are drinking? 1 or 2 05/21/2024 Q3: How often do you have si x or more drinks on one occasion? Never 05/21/2024 Overall Financial Resource Strain (CARDIA) Answe r Date Recorded How hard is it for you to pa y for the very basics like food, housing, medical care, and heating? Patient declined 05/21/2024 PHQ-2 Answer Date Recorded Total Score - Questions 1-9 7 05/05 [facility] of Occupat ional Health - Occupational Stress Questionnaire Answer Date Recorded Do you feel stress - tense, restless, nervous, or anxious, or unable to sleep at night because your mind is troubled all the time - these days? Patient declined 05/21/2024 Exercise Vital Sign Answer Date Recorde d On average, how many days pe r week do you engage in moderate to strenuous exercise (like a brisk walk)? Patient declined On average, how many minutes do you engage in exercise at this level? Patient declined 05/21/2024 Hunger Vital Sign Answer Date Recorded Within the past 12 months, y ou worried that your food would run out before you got the money to buy more. Patient declined Within the past 12 months, t he food you bought just didn't last and you didn't have money to get more. Patient declined PRAPARE - Transportation Answer Date Re corded In the past 12 months, has l ack of transportation kept you from medical appointments or from getting medications? Patient declined 05/21/2024 In the past 12 months, has l ack of transportation kept you from meetings, work, or from getting things needed for daily living? Patient declined 05/21/2024 Housing Stability Vital Sign Answer Júnior e Recorded In the last 12 months, was t here a time when you were not able to pay the mortgage or rent on time? Patient declined 05/21/19 Number of Times Moved in the Last Year Not on fi le 05/21/2024 At any time in the past 12 m [facility], were you homeless or living in a penitentiary (including now)? Patient declined 05/21/2024 Sexually Active Control Partners Comments Not Currently Comments No Sex and Gender Information Value Date Recorded Sex Assigned at Not on file Legal Sex Female 10:16 AM CDT Gender Identity Not on file Sexual Orientation Not on file Last Filed Vital Signs Vital Sign Reading Time Taken Comments Blood Pressure 104/58 05/23/2024 2:47 PM LEGAL ADVISER Pulse 64 05/23/2024 2:47 PM LEGAL ADVISER Temperature 37.4 C (99.3 F) 05/23/2024 2:47 PM LEGAL ADVISER Respiratory Rate 16 05/23/2024 2:47 PM LEGAL ADVISER Oxygen Saturation 98% 05/23/2024 2:47 PM LEGAL ADVISER Inhaled Oxygen Concentration - - Weight 71.2 kg (157 lb) 05/23/2024 2:47 PM LEGAL ADVISER Height 162.6 cm (5' 4 ) 03/28/2024 7:05 AM LEGAL ADVISER Body Mass Index 26.95 03/28/2024 7:05 AM LEGAL ADVISER Plan of Treatment Upcoming Encounters Date Type Department Care Team (Late st Contact Info) Description 11/21/2024 8:15 AM CDT Office Visit [facility] - [address] [place] [address] Kaiden Feliciano PAC [address] [place] [address] Health Maintenance Due Date Last Done Comments Hepatitis C Virus (HCV) Screening 1973 TdaP Immunization 1973 Hepatitis B Immunization (1 of 3 - 19+ 3-dose series) 1992 Cologuard 08/06/2023 Immunochemical Fecal Occult Blood 08/06/2023 Zoster Immunization (1 of 2) 08/06/2023 Colonoscopy 09/06/2024 09/07/2019, 09/29/2016 Colorectal Cancer Screening 09/06/2024 Lung Cancer Screening 01/02/2025 01/03/2024 Mammogram 05/02/2025 05/02/2024, 08/13/2020 Colonoscopy High Risk 09/06/2029 09/07/2019, 017 Respiratory Syncytial Virus (RSV) Immunization (Adult) (1 - 1-dose 75+ series) 2048 SARS-COV-2 Immunization Completed 12/06/19 24, 12/31/2022, 12/28/2021, Additional history exists Influenza Immunization Completed , 12/17/2022, 01/26/2022, Additional history exists Discussion re Starting/Frequency of Mammograms Discontinued 05/02/2024, 08/13/2020 Pneumococcal Immunization (50+ years) Completed 05/23/2024 Pneumococcal Immunization Combined Discontinued 05/23/2024 Human Papillomavirus (HPV) Immunization Aged Out No longer eligible based on patient's age to complete this topic Meningococcal Immunization (ACWY) Aged Out No longer eligible based on patient's age to complete this topic Rotavirus Immunization Aged Out No lo nger eligible based on patient's age to complete this topic Procedures Procedure Name Priority Date/Time Associated Diagnosis Comments UR TOXICOLOGY SCREEN 05/31/2024 12:00 AM LEGAL ADVISER THYROID SCREEN WITH REFLEX Routine 05/26/2024 11:45 AM LEGAL ADVISER Primary hypertension CBC WITH AUTO DIFFERENTIAL Today 05/26/2024 11:45 AM LEGAL ADVISER Chronic diastolic (congestive) heart failure (HCC) Chronic obstructive pulmonary disease with acute exacerbation (HCC) Hyperlipidemia, unspecified hyperlipidemia type VITAMIN B12 Routine 05/26/2024 11:45 AM LEGAL ADVISER B12 deficiency THYROID SCREEN WITH REFLEX Routine 05/26/2024 11:45 AM LEGAL ADVISER Primary hypertension LIPID PANEL Today 05/26/2024 11:45 AM LEGAL ADVISER Hyperlipidemia, unspecified hyperlipidemia type CMP (COMPREHENSIVE METABOLIC PANEL) Routine 05/26/2024 11:45 AM LEGAL ADVISER Chronic diastolic (congestive) heart failure (HCC) Hyperlipidemia, unspecified hyperlipidemia type Primary hypertension COMPLETE BLOOD COUNT (CBC) WITH DIFF Today 05/26/2024 11:45 AM LEGAL ADVISER Chronic diastolic (congestive) heart failure (HCC) Chronic obstructive pulmonary disease with acute exacerbation (HCC) Hyperlipidemia, unspecified hyperlipidemia type DARYN SCREENING BILATERAL DIGITAL W CAD W MIGUEL Routine 05/02/2024 7:05 AM LEGAL ADVISER Breast cancer screening by mammogram HM COLONOSCOPY Routine 09/29/2016 from Last 3 Months or Most Recently Relevant to Health Maintenance Results * UR TOXICOLOGY SCREEN (05/31/2024 12:00 AM LEGAL ADVISER) 05/31/2024 us Provider Scan URINE ORDERABLES Final Result Performing Organization Address City/[facility] Co de Phone Number SCAN * THYROID SCREEN WITH REFLEX (05/26/2024 11:45 AM LEGAL ADVISER) TSH 1.104 0.300 - 5.000 mIU/L 05/26/2024 1:45 PM LEGAL ADVISER [facility] Blood Venipuncture / Unknown 05/26/2024 11:45 AM LEGAL ADVISER 05/26/2024 1:03 PM LEGAL ADVISER us Kaiden Feliciano PAC CHEMISTRY ORDERABLES Final R esult Performing Organization Address City/[facility]/ZIP Co de Phone Number [facility] [address] [place] [address] * (ABNORMAL) CBC WITH AUTO DIFFERENTIAL (05/26/2024 11:45 AM LEGAL ADVISER) WBC 8.07 4.00 - 12.00 10(3)/mcL 05/26/2024 1:27 PM LEGAL ADVISER [facility] RBC 4.47 3.80 - 5.30 10(6)/mcL 05/26/2024 1:27 PM [facility] HEMOGLOBIN (HGB) 14.3 12.0 - 15.8 g/dL 05/26/2024 1:27 PM [facility] HEMATOCRIT (HCT) 43.1 36.0 - 47.0 % 05/26/2024 1:27 PM [facility] MCV 96.4(H) 82.0 - 96.0 fL 05/26/2024 1:27 PM [facility] MCH 32.0 26.0 - 34.0 pg 05/26/2024 1:27 PM [facility] MCHC 33.2 31.0 - 36.0 g/dL 05/26/2024 1:27 PM [facility] PLATELET COUNT 382 140 - 440 10(3)/mcL 05/26/2024 1:27 PM [facility] RDW 12.9 11.8 - 15.5 % 05/26/2024 1:27 PM [facility] MPV 10.2 9.7 - 12.4 fL 05/26/2024 1:27 PM [facility] NEUTROPHILS 63.3 47.0 - 73.0 % 05/26/2024 1:27 PM [facility] LYMPHOCYTES 24.0 18.0 - 42.0 % 05/26/2024 1:27 PM [facility] MONOCYTES 7.7 4.0 - 12.0 % 05/26/2024 1:27 PM [facility] EOSINOPHILS 4.3 0.0 - 5.0 % 05/26/2024 1:27 PM [facility] BASOPHILS 0.7 0.0 - 1.0 % 05/26/2024 1:27 PM [facility] ABSOLUTE NEUTROPHILS 5.10 1.60 - 7.70 10(3)/mcL 05/26/2024 1:27 PM [facility] ABSOLUTE LYMPHOCYTES 1.94 1.30 - 3.20 10(3)/mcL 05/26/2024 1:27 PM LEGAL ADVISER [facility] ABSOLUTE MONOCYTES 0.62 0.20 - 1.00 10(3)/[facility] 05/26/2024 1:27 PM LEGAL ADVISER [facility] ABSOLUTE EOSINOPHIL 0.35 0.00 - 0.40 10(3)/mcL 05/26/2024 1:27 PM LEGAL ADVISER [facility] ABSOLUTE BASOPHILS 0.06 0.00 - 0.10 10(3)/[facility] 05/26/2024 1:27 PM LEGAL ADVISER [facility] NRBC PER 100 WBC 0 05/26/19 1:27 PM LEGAL ADVISER [facility] Blood Venipuncture / Unknown 05/26/2024 11:45 AM LEGAL ADVISER 05/26/2024 1:03 PM LEGAL ADVISER Kaiden Feliciano PAC HEMATOLOGY ORDERABLES Final Result Performing Organization Address City/[facility]/ZIP Co de Phone Number [facility] [address] [place] [address] * (ABNORMAL) VITAMIN B12 (05/26/2024 11:45 AM LEGAL ADVISER) VITAMIN B12 824(H) 213 - 816 pg/mL 05/26/2024 1:52 PM LEGAL ADVISER [facility] Blood Venipuncture / Unknown 05/26/2024 11:45 AM LEGAL ADVISER 05/26/2024 1:03 PM LEGAL ADVISER us Kaiden Feliciano PAC CHEMISTRY ORDERABLES Final R esult [facility] [address] [place] [address] * (ABNORMAL) LIPID PANEL (05/26/2024 11:45 AM LEGAL ADVISER) CHOLESTEROL 95 <200 mg/dL 05/26/2024 1:28 PM LEGAL ADVISER [facility] TRIGLYCERIDES 89 <150 mg/dL 05/26/2024 1:28 PM LEGAL ADVISER [facility] HDL CHOLESTEROL 38(L) >40 mg/dL 1:28 PM [facility] LDL 39 <130 mg/dL 05/26/2024 1:28 PM [facility] VLDL 18 10 - 50 mg/dL 05/26/2024 1:28 PM [facility] CHOL/HDL RATIO 2.5 0.0 - 4.4 05/26/2024 1:28 PM [facility] NON-HDL CHOLESTEROL 57 <130 mg/dL 05/26/2024 1:28 PM [facility] IS THE PATIENT REQUIRED TO BE FASTING? Yes 05/26/2024 1:28 PM [facility] HAS THE PATIENT BEEN FASTING? Yes 05/26/2024 1:28 PM [facility] Blood Venipuncture / Unknown 05/26/2024 11:45 AM LEGAL ADVISER 05/26/2024 1:05 PM LEGAL ADVISER us Kaiden Feliciano PAC CHEMISTRY ORDERABLES Final R esult [facility] [address] [place] [address] * (ABNORMAL) CMP (COMPREHENSIVE METABOLIC PANEL) (05/26/2024 11:45 AM LEGAL ADVISER) SODIUM 144 136 - 145 mmol/L 05/26/2024 1:28 PM [facility] POTASSIUM 3.3(L) 3.5 - 5.1 mmol/L 05/26/2024 1:28 PM [facility] CHLORIDE 107 98 - 107 mmol/L 05/26/2024 1:28 PM [facility] CO2, VENOUS 28 22 - 30 mmol/L 05/26/2024 1:28 PM [facility] ANION GAP 12.3 <18.0 mmol/L 05/26/2024 1:28 PM [facility] GLUCOSE 102(H) 70 - 99 mg/dL 05/26/2024 1:28 PM [facility] BUN 8(L) 10 - 20 mg/dL 05/26/2024 1:28 PM [facility] CREATININE, BLOOD 0.92 0.60 - 1.00 mg/dL 05/26/2024 1:28 PM [facility] BUN/CREATININE RATIO 9(L) 12 - 20 ratio 05/26/2024 1:28 PM [facility] TOTAL PROTEIN 7.1 6.0 - 8.0 g/dL 05/26/2024 1:28 PM [facility] ALBUMIN 4.1 3.5 - 5.0 g/dL 05/26/2024 1:28 PM [facility] A/G RATIO 1.4 1.0 - 2.2 05/26/2024 1:28 PM [facility] CALCIUM 9.4 8.7 - 10.5 mg/dL 05/26/2024 1:28 PM [facility] T BILI 0.4 0.2 - 1.2 mg/dL 05/26/2024 1:28 PM [facility] SGOT (AST) 29 <43 U/L 05/26/2024 1:28 PM [facility] SGPT (ALT) 15 <56 U/L 05/26/2024 1:28 PM [facility] ALKALINE PHOSPHATASE 81 40 - 150 U/L 05/26/2024 1:28 PM [facility] IS THE PATIENT REQUIRED TO BE FASTING? Yes 05/26/2024 1:28 PM [facility] HAS THE PATIENT BEEN FASTING? Yes 05/26/2024 1:28 PM [facility] GFR, ESTIMATED >60 >=60 05/26/2024 1:28 PM [facility] Comment: Creatinine Clearance is the preferred criteria for selecting drug dose adjustments in renally impaired patients. The GFR is provided as additional pertinent clinical information. GFR is reported in mL/min/1.73 sq m. Calculation based on the Chronic Kidney Disease Epidemiology Collaboration (CKD- EPI) equation refit without adjustment for race. GFR, EST. >60 >=60 025 1:28 PM LEGAL ADVISER [facility] GFR, EST. NONAFRICAN >60 >=60 05/26/2024 1:28 PM LEGAL ADVISER [facility] Blood Venipuncture / Unknown 05/26/2024 11:45 AM LEGAL ADVISER 05/26/2024 1:05 PM LEGAL ADVISER us Kaiden Feliciano PAC CHEMISTRY ORDERABLES Final R esult [facility] [address] [place] [address] * DARYN SCREENING BILATERAL DIGITAL W CAD W MIGUEL (05/02/2024 7:05 AM LEGAL ADVISER) Anatomical Region Laterality Modality breast Bilateral Mammography 05/02/2024 7:08 AM LEGAL ADVISER Narrative 05/03/2024 12:56 PM LEGAL ADVISER - DARYN SCREENING BILATERAL DIGITAL W CAD W MIGUEL BILATERAL DIGITAL SCREENING MAMMOGRAM 3D/2D WITH CAD WITH MEDIOLATERAL OBLIQUE CRANIOCAUDAL: 05/02/2024 The study was acquired using digital technology and interpreted from soft copy. Current study was also evaluated with ICAD version 7.2. 2D digital mammographic views, as well as 3D digital tomosynthesis were performed in the CC and MLO projections. CLINICAL: Routine screening. Patient has no complaints. No personal history of cancer. No family history of breast cancer. COMPARISONS: Comparison is made to exams dated: [facility]07[facility]2019 [facility] and [facility]. BREAST TISSUE:There are scattered areas of fibroglandular density. FINDINGS: There is a biopsy clip in the left breast. No significant masses, calcifications, or other findings are seen in either breast. There has been no significant interval change. IMPRESSION: NEGATIVE There is no mammographic evidence of malignancy. A 1 year screening mammogram is recommended. A letter will be sent to the patient with these results. The patient will be entered into a reminder system with a target due date of 1 year for her next screening exam. Electronically signed by: Rupa henry/penrad:05/02/2024 21:38:25 Superintendent Marine(s): RT Elizabet(R)(M), [facility] letter sent: Normal Exam Reading location: [facility] Mammogram BI-RADS: Category 1: Negative Procedure Note Rupa Oh MD - 05/03/2024 - DARYN SCREENING BILATERAL DIGITAL W CAD W MIGUEL BILATERAL DIGITAL SCREENING MAMMOGRAM 3D/2D WITH CAD WITH MEDIOLATERAL OBLIQUE CRANIOCAUDAL: 05/02/2024 The study was acquired using digital technology and interpreted from soft copy. Current study was also evaluated with ICAD version 7.2. 2D digital mammographic views, as well as 3D digital tomosynthesis were performed in the CC and MLO projections. CLINICAL: Routine screening. Patient has no complaints. No personal history of cancer. No family history of breast cancer. COMPARISONS: Comparison is made to exams dated: 06/07/2019 [facility], 08/13/2020 [facility], and 10/01/2015 [facility]. BREAST TISSUE:There are scattered areas of fibroglandular density. FINDINGS: There is a biopsy clip in the left breast. No significant masses, calcifications, or other findings are seen in either breast. There has been no significant interval change. IMPRESSION: NEGATIVE There is no mammographic evidence of malignancy. A 1 year screening mammogram is recommended. A letter will be sent to the patient with these results. The patient will be entered into a reminder system with a target due date of 1 year for her next screening exam. Electronically signed by: Rupa henry/kvng:05/02/2024 21:38:25 Superintendent Marine(s): RT Elizabet(R)(M), [facility] letter sent: Normal Exam Reading location: [facility] Mammogram BI-RADS: Category 1: Negative Monica Villarreal MD IMG MAMMO ORDERABLES Final Result * HM COLONOSCOPY (09/29/2016) Sailaja Garcia MD PROCEDURE/MINOR SURGICAL ORDER MANDI Final Result from Last 3 Months or Most Recently Relevant to Health Maintenance Insurance [facility] Care Teams Piano And Organ Refinisher Relationship Specialty Start Date End Date Kaiden Feliciano, PAC [phone] [place] [id number] PCP - General Physician Evaluation Manager 05/23/24
--- OUTSIDE RECORDS SUMMARY | 2024-08-21 15:31 | XMS_ITS | Encounter Summary ---
Author Organization [facility] Address [address] [place] [address] Phone Care Team Providers Care Diesel Tractor Operator Name Role Phone Kaiden Feliciano Primary Care Provider Reason for Visit * Reason Comments Medication Refill Encounter Details Date Type Department Care Team (Late st Contact Info) Description 06/11/2024 Refill [facility] - Primary Care - [place] [address] [place] [address] Kaiden Feliciano PAC [address] [place] [address] Medication Refill Social History Tobacco Use Types Packs/Day Years Used Date Smoking Tobacco: Former Cigarettes 2017 Smokeless Tobacco: Never Alcohol Use Standard Drinks/Week Comments Not Currently 0 (1 standard drink = 0.6 oz pure alcohol) Pt only drinks on the 05 of October [facility] Utilities Answer Date Recorded In the past 12 months has Given[employer]to, gas, oil, or water company threatened to shut off services in your home? Patient declined 05/21/2024 Social Connection and Isolation Panel [NHANES] A nswer Date Recorded In a typical week, how many times do you talk on the phone with family, friends, or neighbors? Patient declined 05/21/2024 How often do you get togethe r with friends or relatives? Patient declined 05/21/2024 How often do you attend sabianism or sabianism serv ices? Patient declined 05/21/2024 Do you belong to any clubs o r organizations such as sabianism groups, unions, fraternal or athletic groups, or [...] Total Score - Questions 1-9 7 05/05 [facility] Occupat ional Health - Occupational Stress [...] any time in the past 12 m [facility], were you homeless or living in a snf (including now)? Patient declined 05/21/2024 Sexually Active Control Partners Comments Not Currently Comments No Sex and Gender Information Value Date Recorded Sex Assigned at Not on file Legal Sex Female 10:16 AM CDT Gender Identity Not on file Sexual Orientation Not on file documented as of this encounter Miscellaneous Notes * Telephone Encounter - Kaiden Feliciano PAC - 06/11/2024 4:23 PM CDT Duplicate request. See mychart encounter from 06/11/24 * Telephone Encounter - Moe Green RN - 06/11/2024 4:06 PM CDT Per nursing clinical judgement, provider to review and approve the medication(s) order(s) if appropriate. Requested Prescriptions Pending Prescriptions Disp Refills budesonide-formoterol fumarate (SYMBICORT) 160-4.5 MCG/ACT Aerosol [Pharmacy Med Name: BUDESONIDE/FORM 160/4.5MCG(120 INH)] 30.6 g 0 Sig: INHALE 2 PUFFS INTO THE LUNGS TWICE DAILY Inhaled Combinations Protocol Passed - 06/11/2024 4:06 PM Passed - Visit with relevant provider in past 12 months or upcoming 90 days Recent Visits Date Type Provider Dept 05/23/24 Office Visit Kaiden Feliciano PAC [facility] 03/12/24 Office Visit Monica Villarreal MD [facility] Showing recent visits within past 365 days and meeting all other requirements Future Appointments No visits were found meeting these conditions. Showing future appointments within next 90 days and meeting all other requirements Passed - Active short-acting beta agonist prescription documented in this encounter Plan of Treatment Upcoming Encounters Date Type Department Care Team (Late st Contact Info) Description 11/21/2024 8:15 AM CDT Office Visit [facility] - Primary Care - [place] [address] [place] [address] Kaiden Feliciano PAC [address] [place] [address] documented as of this encounter Visit Diagnoses Not on filedocumented in this encounter Additional Health Concerns Assessment Noted Time PHQ-9 Depression Total Score: 7 05/23/19 2:46 PM SPECIAL AGENT documented as of this encounter Care Teams Diesel Tractor Operator Relationship Specialty Start Date End Date Kaiden Feliciano PAC [address] [place] [address] PCP - General Physician Motion Graphics Artist 05/23/24 documented as of this encounter
--- NOTE | 2024-08-21 15:34 | ECG_ITS ---
Test Date: 2024-08-21 15:39:40 Measurements Intervals [place] Rate: 100 P: 68 NC: 134 QRS: 51 QRSD: 89 T: 37 QT: 339 QTc: 438 Interpretive Statements SINUS TACHYCARDIA POSSIBLE LEFT ATRIAL ENLARGEMENT [-0.1mV P WAVE IN V1/V2] NONSPECIFIC T-WAVE ABNORMALITY ABNORMAL ECG Compared to ECG 09/25/2023 02:45:11 T-wave abnormality now present Sinus bradycardia no longer present Sinus arrhythmia no longer present Electronically Signed On 08-22-2024 08:18:35 CDT by Tony Oliver M.D.
--- NOTE | 2024-08-21 15:39 | ED_ITS ---
HPI - SOB/Dyspnea General Chief Complaint: Shortness of Breath/Dyspnea <JAIME Lemos Last Filed: 08/21/24 18:52> Stated Complaint: SOB, back pain <JAIME Lemos Last Filed: 08/21/24 18:52> Time Seen by Provider: 08/21/24 15:39 <JAIME Lemos Last Filed: 08/21/24 18:52> Focused HPI: Patient is a 49 y/o female , with PMH of COPD, who presents to the ED with c/o SOB. Patient reports feeling increasingly short of breath over the past couple of days. Been trying her nebulizers and inhalers at home without improvement. She feels like she needs to cough, but is unable to take a deep enough breath to cough. Reports midsternal chest pain and mid back pain. Denies pain/swelling in legs, fevers, congestion, sick contacts. GENERAL: Mildly uncomfortable/anxious-appearing, well-nourished, and in no acute distress. HEAD: Normocephalic, atraumatic. CHEST: Clear to auscultation. No significant wheezing. Mildy tachypneic. HEART: Regular rate and rhythm.? NEURO: ?Alert and oriented x3. Patient screened in triage and initial orders placed.? ?Additional care and disposition to be based upon?diagnostic testing and treatment. <JAIME Lemos Last Filed: 08/21/24 18:52> Source: patient <JAIME Lemos Last Filed: 08/21/24 18:52> Mode of arrival: ambulatory <JAIME Lemos Last Filed: 08/21/24 18:52> Limitations: no limitations <JAIME Lemos Last Filed: 08/21/24 18:52> History of Present Illness HPI Narrative: Patient states she has been having pain to her mid back that has been ongoing for last few days; she does have a history of chronic back pain but this currently feels like a horrible spasm that goes across her back, the pain is so intense that it makes it difficult for her to take a deep breath or sleep or turn or move. <Mirian Santos MD - Last Filed: 08/22/24 01:59> Related Data Allergies/Adverse Reactions: Allergies Allergy/AdvReac Type Severity Reaction Status Date / Time amoxicillin Allergy Unknown Rash Verified 09/25/23 00:57 cephalexin Allergy Unknown Rash Verified 09/25/23 00:57 clavulanic acid Allergy Unknown Rash Verified 09/25/23 00:57 codeine Allergy Unknown INCREASED Verified 09/25/23 00:57 HEART RATE AND CHEST PAIN Penicillins Allergy Unknown Rash Verified 09/25/23 00:57 telithromycin Allergy Unknown Rash Verified 09/25/23 00:57 metronidazole (From Flagyl) Allergy Rash Verified 09/25/23 00:57 POTASSIUM CLAVULANATE Allergy Mild Rash Uncoded 07/17/22 13:36 AMOXICILLIN TRIHYDRATE AdvReac Mild migraine Uncoded 07/17/22 13:36 CEPHALEXIN MONOHYDRATE AdvReac Mild rash Uncoded 07/17/22 13:36 <Luz Lewis PA-C - Last Filed: 08/21/24 18:52> Review of Systems 2 Review of Systems: All systems reviewed & are unremarkable except as noted in HPI and below <Mirian Santos MD - Last Filed: 08/22/24 01:59> PMFSH Past Medical History Medical History: Medical History COPD (chronic obstructive pulmonary disease) GERD (gastroesophageal reflux disease) Hypertension <Luz Lewis PA-C - Last Filed: 08/21/24 18:52> Surgical History Surgical History: Surgical History History of hysterectomy <Luz Lewis PA-C - Last Filed: 08/21/24 18:52> Family History Family History: Family History Father Hypertension Family history of elevated blood lipids Family history of chronic obstructive pulmonary disease Family history of congestive heart failure Acute myocardial infarction Mother Hypertension Family history of elevated blood lipids Other Diabetes mellitus Family history of heart disease in male family member before age 55 Family history of kidney disease <Luz Lewis PA-C - Last Filed: 08/21/24 18:52> Social History Social History: Social History Alcohol intake: current <Luz Lewis PA-C - Last Filed: 08/21/24 18:52> Exam 2 Narrative: EXAMINATION OF ORGAN SYSTEMS/BODY AREAS: Constitutional: Vital signs per nursing GENERAL: Holding very still, looking pained HEAD: Normal with no signs of head trauma. EYES: EOMI, conjunctiva normal ENT: Hearing grossly intact LUNGS: Nonlabored breathing. HEART: Slightly tachycardic ABD: [Soft], [nontender to palpation] EXT: Tenderness across midback SKIN: [No rashes or lesions.] NEURO: [Alert and oriented x 3. No gross focal sensory or strength deficits.] PSYCH: Normal affect <Mirian Santos MD - Last Filed: 08/22/24 01:59> Course Vital Signs Vital signs: Vital Signs Temperature 98 F 08/21/24 15:30 Pulse Rate 102 H 08/21/24 15:30 Respiratory Rate 18 08/21/24 15:30 Blood Pressure 112/77 08/21/24 15:30 Pulse Oximetry 95 08/21/24 15:30 Oxygen Delivery Room Air 08/21/24 15:30 Temperature 99 F 08/21/24 19:49 Pulse Rate 94 08/21/24 22:43 Respiratory Rate 20 08/21/24 22:43 Blood Pressure 122/80 08/21/24 21:16 Pulse Oximetry 94 08/21/24 22:43 Oxygen Delivery Room Air 08/21/24 21:05 <JAIME Lemos Last Filed: 08/21/24 18:52> Vital Signs Temperature 98 F 08/21/24 15:30 Pulse Rate 102 H 08/21/24 15:30 Respiratory Rate 18 08/21/24 15:30 Blood Pressure 112/77 08/21/24 15:30 Pulse Oximetry 95 08/21/24 15:30 Oxygen Delivery Room Air 08/21/24 15:30 Temperature 99 F 08/21/24 19:49 Pulse Rate 94 08/21/24 22:43 Respiratory Rate 20 08/21/24 22:43 Blood Pressure 122/80 08/21/24 21:16 Pulse Oximetry 94 08/21/24 22:43 Oxygen Delivery Room Air 08/21/24 21:05 <Mirian Santos MD - Last Filed: 08/22/24 01:59> MDM - SOB/Dyspnea MDM Narrative Medical decision making narrative: MSE by LORRAINE in triage. <Luz Lewis PA-C - Last Filed: 08/21/24 18:52> MSE by LORRAINE in triage. Patient presenting with what feels like a back spasm across her mid back, has been ongoing for last 2-3 days, pain severe enough that she is having trouble sleeping and taking deep breaths, much worse with movement. EKG on my independent interpretation shows sinus tachycardia rate 100, PA 134, QRS 89, QTC 438, no ST elevations or depressions or signs of acute ischemia or arrhythmia. D-dimer was elevated so CT PE obtained which thankfully does not show any acute osseous abnormality, PE, nor dissection. I will be treating patient for presumptive muscle spasm, given dose of Valium and lidocaine patch, and on re-evaluation she states that she feels much better, the pain is reduced quite a bit, she is now able to rest more comfortably and she was more comfortable in the bed, able to move now, and she does feel comfortable going home at this time with prescriptions for muscle relaxants and pain medication. I have asked her to follow up with her primary care doctor and return to the ER if she feels worse or anything else concerning. <Mirian Santos MD - Last Filed: 08/22/24 01:59> Lab Data Result diagrams: 08/21/24 19:43 08/21/24 19:43 <Luz Lewis PA-C - Last Filed: 08/21/24 18:52> Labs: Lab Results 08/21/24 08/21/24 Range/Units 18:24 19:43 WBC 14.4 H (4.5-10.0) K/mm3 RBC 4.53 (4.2-5.4) M/mm3 Hgb 13.9 (12.0-15.0) g/dL Hct 44.6 (37.0-47.0) % MCV 98.5 (80-100) fl MCH 30.7 (26-34) pg MCHC 31.2 L (32-36) g/dl RDW 13.4 (11.5-14.5) % Plt Count 393 H (150-375) k/mm3 MPV 9.6 (7.4-10.4) fl Immature Gran % (Auto) 0.3 (0-0.5) % Neut % (Auto) 69.8 (45.5-73.1) % Lymph % (Auto) 19.5 (18.3-44.2) % [place] % (Auto) 10.0 H (2.6-8.5) % Eos % (Auto) 0.1 (0-4.4) % Baso % (Auto) 0.3 (0.2-1.2) % Lymph # (Auto) 2.80 (0.9-3.2) K/mm3 [place] # (Auto) 1.4 H (0.1-0.6) K/mm3 Eos # (Auto) 0.0 (0-0.3) K/mm3 Baso # (Auto) 0.0 (0.0-0.1) K/mm3 Abs Immat Gran (auto) 0.05 H (0.00-0.031) K/mm3 Absolute Neuts (auto) 10.0 H (1.3-6.7) K/mm3 Absolute Nucleated RBC 0.000 (0.0-0.012) K/mm3 Nucleated RBC % 0.0 (0.0-0.2) % PT 15.3 H (11.1-14.7) Seconds INR 1.2 APTT 33.3 (22.3-36.8) Seconds D-Dimer 0.53 H (<0.48) ug/mL Sodium 141 (137-145) mmol/L Potassium 3.7 (3.4-5.0) mmol/L Chloride 104 (98-107) mmol/L Carbon Dioxide 25 (22-30) mmol/L Anion Gap 12 (4-12) mmol/L BUN 15 D (7-17) mg/dL Creatinine 1.03 H (0.7-1.0) mg/dL Estim Creat Clear Calc 51 ml/min Estimated GFR 56 L (59 - ) Glucose 86 (65-110) mg/dL Calcium 9.8 (8.4-10.2) mg/dL Magnesium 2.2 (1.6-2.3) mg/dL Total Bilirubin 1.1 (0.2-1.3) mg/dL AST 28 (14-36) U/L ALT 18 (6-35) U/L Alkaline Phosphatase 96 (38-126) U/L Troponin I < 0.012 (0.000-0.034) ng/mL Total Protein 7.0 (6.3-8.2) g/dL Albumin 4.5 (3.5-5.1) g/dL Influenza A (RT-PCR) Negative (Negative) Influenza B (RT-PCR) Negative (Negative) RSV (RT-PCR) Negative (Negative) SARS-CoV-2 RNA (RT-PCR) Negative (Negative) <Luz Lewis PA-C - Last Filed: 08/21/24 18:52> Lab Results 08/21/24 08/21/24 Range/Units 18:24 19:43 WBC 14.4 H (4.5-10.0) K/mm3 RBC 4.53 (4.2-5.4) M/mm3 Hgb 13.9 (12.0-15.0) g/dL Hct 44.6 (37.0-47.0) % MCV 98.5 (80-100) fl MCH 30.7 (26-34) pg MCHC 31.2 L (32-36) g/dl RDW 13.4 (11.5-14.5) % Plt Count 393 H (150-375) k/mm3 MPV 9.6 (7.4-10.4) fl Immature Gran % (Auto) 0.3 (0-0.5) % Neut % (Auto) 69.8 (45.5-73.1) % Lymph % (Auto) 19.5 (18.3-44.2) % [place] % (Auto) 10.0 H (2.6-8.5) % Eos % (Auto) 0.1 (0-4.4) % Baso % (Auto) 0.3 (0.2-1.2) % Lymph # (Auto) 2.80 (0.9-3.2) K/mm3 [place] # (Auto) 1.4 H (0.1-0.6) K/mm3 Eos # (Auto) 0.0 (0-0.3) K/mm3 Baso # (Auto) 0.0 (0.0-0.1) K/mm3 Abs Immat Gran (auto) 0.05 H (0.00-0.031) K/mm3 Absolute Neuts (auto) 10.0 H (1.3-6.7) K/mm3 Absolute Nucleated RBC 0.000 (0.0-0.012) K/mm3 Nucleated RBC % 0.0 (0.0-0.2) % PT 15.3 H (11.1-14.7) Seconds INR 1.2 APTT 33.3 (22.3-36.8) Seconds D-Dimer 0.53 H (<0.48) ug/mL Sodium 141 (137-145) mmol/L Potassium 3.7 (3.4-5.0) mmol/L Chloride 104 (98-107) mmol/L Carbon Dioxide 25 (22-30) mmol/L Anion Gap 12 (4-12) mmol/L BUN 15 D (7-17) mg/dL Creatinine 1.03 H (0.7-1.0) mg/dL Estim Creat Clear Calc 51 ml/min Estimated GFR 56 L (59 - ) Glucose 86 (65-110) mg/dL Calcium 9.8 (8.4-10.2) mg/dL Magnesium 2.2 (1.6-2.3) mg/dL Total Bilirubin 1.1 (0.2-1.3) mg/dL AST 28 (14-36) U/L ALT 18 (6-35) U/L Alkaline Phosphatase 96 (38-126) U/L Troponin I < 0.012 (0.000-0.034) ng/mL Total Protein 7.0 (6.3-8.2) g/dL Albumin 4.5 (3.5-5.1) g/dL Influenza A (RT-PCR) Negative (Negative) Influenza B (RT-PCR) Negative (Negative) RSV (RT-PCR) Negative (Negative) SARS-CoV-2 RNA (RT-PCR) Negative (Negative) <Mirian Santos MD - Last Filed: 08/22/24 01:59> Discharge Plan Discharge Clinical Impression: Back muscle spasm <JAIME Lemos Last Filed: 08/21/24 18:52> Patient Disposition: Home <JAIME Lemos Last Filed: 08/21/24 18:52> Condition: Stable <JAIME Lemos Last Filed: 08/21/24 18:52> Instructions: Muscle Spasm (ED), Back Pain (ED) <JAIME Lemos Last Filed: 08/21/24 18:52> Additional Instructions: Please follow up with your doctor and the neurosurgeon for your back; you can always return for any further issues. <JAIME Lemos Last Filed: 08/21/24 18:52> Patient Language: Malaysian <JAIME Lemos Last Filed: 08/21/24 18:52> Prescriptions: New acetaminophen [Tylenol Extra Strength] 500 mg tablet 1,000 mg PO Q6H PRN (Reason: pain) Qty: 50 0RF methocarbamol 750 mg tablet 750 mg PO TID PRN (Reason: muscle spasm) Qty: 30 0RF lidocaine 5 % adhesive patch,medicated 1 patch topical DAILY Qty: 15 0RF Rx Instructions: leave on most painful area for up to 12 hrs ibuprofen 600 mg tablet 600 mg PO TID PRN (Reason: fever or pain) Qty: 30 0RF No Action sulfamethoxazole-trimethoprim [Bactrim DS] 800-160 mg tablet 1 tablet PO Q12H Qty: 14 0RF oxycodone-acetaminophen [Percocet] 5-325 mg tablet 1 tablet PO Q6H PRN (Reason: pain) Qty: 7 0RF <JAIME Lemos Last Filed: 08/21/24 18:52> Follow-up/Referrals: Verenice,Kaiden Patricia [Primary Care Provider] - 2 Days Renee Kang MD [Physician] - 2 Days <JAIME Lemos Last Filed: 08/21/24 18:52> Stand Alone Forms: Work/School Release IP <JAIME Lemos Last Filed: 08/21/24 18:52>
[2024-08-21 20:03] LABS: Basophils Percent Auto 0.3 % (0.2-1.2); Eosinophils Percent Auto 0.1 % (0-4.4); Hematocrit 44.6 % (37.0-47.0); Hemoglobin 13.9 g/dL (12.0-15.0); Immature Granulocyte Absolute 0.05 K/mm3 (0.00-0.031); Immature Granulocyte Percent A 0.3 % (0-0.5); Lymphocytes Percent Auto 19.5 % (18.3-44.2); Mean Corpuscular HGB Conc 31.2 g/dl (32-36); Mean Corpuscular Hemoglobin 30.7 pg (26-34); Mean Corpuscular Volume 98.5 fl (80-100); Mean Platelet Volume 9.6 fl (7.4-10.4); Monocytes Absolute Auto 1.4 K/mm3 (0.1-0.6); Neutrophils Percent Auto 69.8 % (45.5-73.1); Platelet Count Result 393 k/mm3 (150-375); Red Blood Count 4.53 M/mm3 (4.2-5.4); Red Cell Distribution Width 13.4 % (11.5-14.5); White Blood Count 14.4 K/mm3 (4.5-10.0)
[2024-08-21 20:15] LABS: INR 1.2; Partial Thromboplastin Time 33.3 Seconds (22.3-36.8); Prothrombin Time 15.3 Seconds (11.1-14.7)
[2024-08-21 20:18] LABS: D Dimer 0.53 ug/mL (<0.48)
[2024-08-21 20:40] LABS: Influenza A QL RT-PCR Negative (Negative); Influenza B QL RT-PCR Negative (Negative); RSV RNA, RT-PCR Negative (Negative); SARS-CoV-2 RNA PCR Negative (Negative)
[2024-08-21 21:02] LABS: Alanine Aminotransferase 18 U/L (6-35); Albumin Level 4.5 g/dL (3.5-5.1); Alkaline Phosphatase 96 U/L (38-126); Anion Gap 12 mmol/L (4-12); Aspartate Amino Transferase 28 U/L (14-36); Bilirubin,Total 1.1 mg/dL (0.2-1.3); Blood Urea Nitrogen 15 mg/dL (7-17); Calcium 9.8 mg/dL (8.4-10.2); Carbon Dioxide 25 mmol/L (22-30); Chloride 104 mmol/L (98-107); Estimated CRCL calculation 51 ml/min; Estimated Glomerular Filt Rate 56; Glucose 86 mg/dL (65-110); Magnesium 2.2 mg/dL (1.6-2.3); Potassium 3.7 mmol/L (3.4-5.0); Sodium 141 mmol/L (137-145)
--- OUTSIDE RECORDS SUMMARY | 2024-08-21 21:09 | XMS_ITS | CONTINUITY OF CARE DOCUMENT ---
Author Name kim alvarez Address Unknown Organization [facility] Address [address] [place] [address] Phone [phone] Care Team Providers Care Dance Studio Manager Name Role Phone Wei DREW, Edmundo Unavailable [place] DREW, [place] Unavailable [phone] DE DAMICO MD Unavailable PROBLEMS Condition Status [...] Velia Jean NP ADHD active Velia Jean FINISHER MACHINE Migraines active Velia Jean NP IBS active Velia Jean NP CAD active Edmundo Carvajal MD PVD; active Edmundo Carvajal MD Tobacco use, quit active Velia Jean FINISHER MACHINE Screening active Edmundo Carvajal MD Hypokalemia completed [...] In-person encounter Office Visit Edmundo Carvajal MD [facility] Arrhythmia;NML TSHBradycardi a - sinus duet ot bb ;nml tsh - In-person encounter Office Visit Edmundo Carvajal MD [facility] OverweightDiastolic CHF - In-person encounter Office Visit Edmundo Carvajal MD [facility] HypokalemiaEdemaVenous insufficiency - In-person encounter Office Visit Edmundo Carvajal MD [facility] Hyperlipidemia;NEG CRP and lpaFamily Hx heart diseasePVD;ScreeningIRON DEFICIENCYcovid ;HAD VACCINEOverweightVitamin D deficiencyArrhythmia;NML TSHSleep apnea - In-person encounter Office Visit Edmundo Carvajal MD [place] [facility] HypertensionHyperlipidemia;NEG CRP and lpaFamily Hx heart [...] jennie Funez blood pressure, systolic 114 mm[Hg] [facility] shaggy Funez oxygen saturation, oximetry 96 [...] blood pressure, resting Yes Vera aakash Jean FINISHER MACHINE blood pressure, diastolic 91 mm[Hg] Colleen Cruz [...] E&M revi ewed - no changes required Edmnudo Carvajal MD smoking status Never smoker Alix [...] as a smoker 20 a Verqueenie Bonabhaktiri FINISHER MACHINE smoking history, tot al pack/year 20 Verqueenie Bonareri FINISHER MACHINE smoking history, tot al pack/day 1 Verah Bonareri FINISHER MACHINE social history reviewed E&M revi ewed - no changes required Velia Bonareri FINISHER MACHINE social history E&M S moking History: Amelia peters is a former smoker. Verqueenie Bonareri FINISHER MACHINE drug use no Verah Bonareri FINISHER MACHINE alcohol use yes Verah Bonareri FINISHER MACHINE smoking, year quit 2018 Luz Cruz cigarette [...] Policy type / Coverage type [employer]arte red republican ID [facility] [id number] ADVANCE DIRECTIVES Name Date DISCUSSED - NO DECISION MADE TREATMENT PLAN Date Name Performer [id number],S, Edmundo smith MD [id number],S, e ng egfr n eg alubmin h igh dd and neg ct pe n eg b12 e ng a2c n eg uacr Edmundo Carvajal MD [id number],B, Edmundo smith MD [id number],B, u p to date on colon Edmundo Carvajal MD [id number],S,neg holter Lomeli nora Carvajal MD [id number],S, Edmundo smith MD [id number],B, t race ai on cath Edmundo Carvajal MD [id number],S, s core 1, fixed defect normal cor Edmundo Carvajal MD [id number],S, p ap 37 due ot lvedp of 20 Edmundo Carvajal MD [id number],S, n ml pro lvedp 20 Edmundo Carvajal MD [id number],S, m ild Edmundo Carvajal MD [id number],C,mild Edmundo S zaida DREW [id number],C,trace ai on c ath Edmundo Carvajal MD [id number],C,pap 37 due ot lvedp of 20 Edmundo Carvajal MD [id number],C,nml pro lvedp 20 Edmundo Carvajal MD [id number],C,score 1, fixe d defect normal cor Edmundo Gamboaluis DREW [id number],S,sx Edmundo Ser rotary drier feeder [id number],S,neg pro and u acr adn albuimin Edmundo Gamboaluis DREW [id number],S,3.3 Edmundo Se rota [id number],S,e ng egfr n ml pro h igh dd and neg ct pe n eg b12 e ng a2c n eg uacr Edmundo Gamboaluis DREW [id number],C,up to date on colon Edmundo Gamboaluis DREW [id number],B, Edmundo Serot a [id number],S, Edmundo Serot a [id number],S, a thtero with neg arely ands senlsiae Edmundo Gamboaluis DREW [id number],S, s core 1 fixxed deffectg Edmundo Carvajal [id number],C,score 1 fixxe d deffectg Edmundo Gamboaluis DREW [id number],C,on sensliase Edmundo Gmaboaluis DREW [id number],C,fixed defect Edmundo Gamboaluis DREW [id number],C,athtero with neg arely Edmundo Gamboaluis DREW [id number],C,Quit smoking about 5-6 years go. Velia Jean FINISHER MACHINE [id number],C,M anaged per PCP. Will check PFTs. H er updated medication list for this problem includes: Symbicort 160-4.5 Mcg/actuation Hfa Aerosol Inhaler (Budesonide-formoterol) Albuterol Sulfate 90 Mcg/actuation Hfa Aerosol Inhaler (Albuterol sulfate) Velia Jean FINISHER MACHINE [id number],C,F ather had from an [place]. He had tripple bypass done. Velia Jean NP [id number],C,W ill check labs and CT Calcium score H er updated medication list for this problem includes: Atorvastatin 20 Mg Tablet (Atorvastatin) Velia Jean NP [id number],C, H er updated medication list for this problem includes: Metoprolol Succinate 25 Mg Tablet Extended Release 24 Hr (Metoprolol succinate) Amlodipine 5 Mg Tablet (Amlodipine) Aspirin 81 Mg Tablet,delayed Release (dr/ec) (Aspirin) ..... Take 1 tablet by mouth once a day BP today: 140/91 Velia Jean NP [id number],C,P atient has bilateral calf pain with walking for a few years now. W ill check arterial duplex/Sensilase and labs. Velia Jean PAOLO [id number],C,E KG in office shows NSR. Troponin ~ [...] n eg uacr Edmundo Carvajal MD Cardiology Edmundo Carvajal MD [...] neg arely Edmundo joseph MD Cardiology-sen with FINISHER MACHINE:Quit smok ing about 5-6 years go. Velia Jean NP Cardiology-sen with FINISHER MACHINE:Managed per PCP. Will check PFTs. H er updated medication list for this problem includes: Symbicort 160-4.5 Mcg/actuation Hfa Aerosol Inhaler (Budesonide-formoterol) Albuterol Sulfate 90 Mcg/actuation Hfa Aerosol Inhaler (Albuterol sulfate) Velia Jean NP Cardiology-sen with FINISHER MACHINE:Father had from an [place]. He had tripple bypass done. Velia Jean NP Cardiology-sen with FINISHER MACHINE:Will check labs and CT Calcium score H er updated medication list for this problem includes: Atorvastatin 20 Mg Tablet (Atorvastatin) Velia Jean FINISHER MACHINE Cardiology-sen with FINISHER MACHINE: H er updated medication list for this problem includes: Metoprolol Succinate 25 Mg Tablet Extended Release 24 Hr (Metoprolol succinate) Amlodipine 5 Mg Tablet (Amlodipine) Aspirin 81 Mg Tablet,delayed Release (dr/ec) (Aspirin) ..... Take 1 tablet by mouth once a day BP today: 140/91 Velia Jean FINISHER MACHINE Cardiology-sen with FINISHER MACHINE:Patient has bilateral calf pain with walking for a few years now. W ill check arterial duplex/Sensilase and labs. Velia Jean FINISHER MACHINE Cardiology-sen with FINISHER MACHINE:EKG in office shows NSR. Troponin ~ 1 [...] by mouth once a day Velia Jean FINISHER MACHINE Date Name Holter Monitor 24 Hr BASIC METABOLIC PANE L W/EGFR Low Dose Lung CT FOLATE, SERUM CXR- PA/Lat PROBNP, N TERMINAL Monitor - Telemetry (Mobile Cardiac) LIPID PANEL Complete Echo DLCO - 46227 FRC - 02451 FVC - [address] LIPID PANEL DLCO - 96333 FRC - 02288 FVC - 67423 Sleep Study Titratio n Holter Monitor 24 Hr Sleep Study Home RT & LT HRT CATH Venous Doppler Bilat eral LE - Reflux AORTIC ROOT PROTHROMBIN TIME WIT H INR CBC (INCLUDES DIFF/P LT) BASIC METABOLIC PANE L W/EGFR SLHV ICER MACHINE PROCED URES CXR- PA/Lat DLCO - 52770 FRC - 51765 FVC - 62712 D-DIMER, QUANTITATIV E CT, Coronary Calcium Score DLCO - 73035 FRC - 57663 FVC - 97743 Arterial Duplex Bi-L ower EX Arterial - [...] d FVC / MVV with bronchodilator - 86865 Edmundo Carvajal MD completed BLOOD COUNT HEMOGLOBIN Edmundo Carvajal MD completed SpO2 w/o 6min walk/titration Edmundo Carvajal MD completed SVC - 83390 Edmundo Carvajal MD complet ed DLCO - 17714 Edmundo Carvajal MD comple yovanny Complex e/m visit add on Edmundo Carvajal MD completed Counseling LDCT Edmundo Carvajal MD com pleted EKG Edmundo Carvajal MD complete d Spirometry Edmundo Carvajal MD complete d FVC / MVV with bronchodilator - 56364 Edmundo Carvajal MD completed BLOOD COUNT HEMOGLOBIN Edmundo Carvajal MD completed FRC - 09651 Edmundo Carvajal MD complet ed SpO2 w/o 6min walk/titration Edmundo Carvajal MD completed SVC - 51180 Edmundo Carvajal MD complet ed DLCO - 76040 Edmundo Carvajal MD comple yovanny CT- Coronary CA score Edmundo Carvajal MD completed EKG Edmundo Carvajal MD complete d
--- OUTSIDE RECORDS SUMMARY | 2024-08-21 21:09 | XMS_ITS | Encounter Summary ---
Author Organization [facility] Address [address] [place] [id number] Care Team Providers Care Photograph Retoucher Name Role Phone Essence Bowles MD Primary Care Provider [phone] Encounter Details Date Type Department Care Team (Late st Contact Info) Description 09/04/2019 Lab Requisition [facility] MICROBIOLOGY [address] [place] [address] Sahil Rodriguez MD Cough Social History Tobacco [...] Not detected, Invalid 09/05/2019 3:22 PM CDT [facility]CROBI[facility] Microbiology SPECIMEN FROM NASOPHARYNGEAL STRUCTURE / Unknown Collection / Unknown 09/04/2019 11:05 AM CDT 09/04/2019 9:38 PM CDT Narrative [facility]CRO[facility] - 09/05/2019 3:22 PM CDT This Real Time RT-PCR assay was developed and its performance characteristics determined by [facility]. This test has been [...] LAB - MICROBIOLOGY ORDERABL ES Final Result [facility]CROBIOLOGY [address] [place] [address], [facility] [phone] documented in this encounter Visit Diagnoses Diagnosis Cough documented in this encounter Additional Health Concerns Infection Onset Date Last Indicated Resolved Time COVID-19 Under Investigation 09/04/2019 09/04/2019 09/05/2019 3:22 PM CDT documented as of this encounter Care Teams Photograph Retoucher Relationship Specialty Start Date End Date Essence Bowles MD [facility] [place] [id number] PCP - General 08/29/19 documented as of this encounter
--- OUTSIDE RECORDS SUMMARY | 2024-08-21 21:09 | XMS_ITS | Clinical Summary ---
Author Organization [facility] Address [address] [address] Phone Care Team Providers Care Goggles Assembler Name Role Phone Kaiden Feliciano Isidro TRAVIS Primary Care Provider Allergies Active Allergy Reactions Criticality Noted Date [...] by mouth 2 times daily. 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, unspecified extremity 09/15/2022 Atherosclerotic heart diseas e of igiugig coronary artery without angina pectoris 09/15/2022 Hypertension [...] Care Team Description 07/31/2024 MyChart RX Renewal [facility] [address] [place] [address] Kaiden Feliciano PAC Medication Renewal Declined 06/12/2024 Telephone [facility] [address] [place] [address] Kaiden Feliciano, PAC Medication Management 06/11/2024 Refill [facility] [address] [place] [address] Kaiden Feliciano, PAC Medication Refill 05/31/2024 9:10 AM EGG PRODUCER Lab [facility] [address] [place] [phone] Lab, [address] Discharge Disposition: Discharged to home or Selfcare 05/29/2024 Travel 05/27/2024 Results Follow-Up [facility] [address] [place] [phone] Kaiden Feliciano, PAC CMP (COMPREHENSIVE METABOLIC PANEL), LIPID PANEL, VITAMIN B12, Additional followed-up results: 2 05/26/2024 Travel from Last 3 Months Immunizations Immunization Administration Dates Next Due Influenza Vaccine, MDCK,quad rivalent, pres free 12/17/2022 Influenza Vaccine, Quadrivalent, PF 01/26/2022,0 12/14/2020,12/28/2018 Influenza Vaccine,unspecified Formulation 2017 Influenza, Injectable, Mdck, Preservative Free 01/08/2024 Influenza, Seasonal, Injectable, Undefined 01/18 Pneumococcal conjugate PCV20 , polysaccharide [id number] conjugate, adjuvant, PF 05/23/2024 Family History Medical [...] only drinks on the 05 of October [facility] Utilities Answer Date Recorded In the past 12 months has [facility], oil, or water [facility] threatened to shut off services in your home? Patient declined 05/21/2024 Social Connection and Isolation Panel [NHANES] A nswer Date Recorded In a typical week, how many times do you talk on the phone with family, friends, or neighbors? Patient declined 05/21/2024 How often do you get togethe r with friends or relatives? Patient declined 05/21/2024 How often do you attend catholic or jehovah's witness serv ices? Patient declined 05/21/2024 Do you belong to any clubs o r organizations such as catholic groups, unions, fraternal or athletic groups, or [...] Total Score - Questions 1-9 7 05/05 [facility] [place] of Occupat ional Health - Occupational Stress [...] any time in the past 12 m [facility], were you homeless or living in a assisted (including now)? Patient declined 05/21/2024 Sexually Active Control Partners Comments Not Currently Comments No Sex and Gender Information Value Date Recorded Sex Assigned at Not on file Legal Sex Female 10:16 AM CDT Gender Identity Not on file Sexual Orientation Not on file Last Filed Vital Signs Vital Sign Reading Time Taken Comments Blood Pressure 104/58 05/23/2024 2:47 PM EGG PRODUCER Pulse 64 05/23/2024 2:47 PM EGG PRODUCER Temperature 37.4 C (99.3 F) 05/23/2024 2:47 PM EGG PRODUCER Respiratory Rate 16 05/23/2024 2:47 PM EGG PRODUCER Oxygen Saturation 98% 05/23/2024 2:47 PM EGG PRODUCER Inhaled Oxygen Concentration - - Weight 71.2 kg (157 lb) 05/23/2024 2:47 PM EGG PRODUCER Height 162.6 cm (5' 4 ) 03/28/2024 7:05 AM EGG PRODUCER Body Mass Index 26.95 03/28/2024 7:05 AM EGG PRODUCER Plan of Treatment Upcoming Encounters Date Type Department Care Team (Late st Contact Info) Description 11/21/2024 8:15 AM CDT Office Visit [facility] - [address] [place] [address] Kaiden Feliciano PAC [address] [place] [address] Health Maintenance Due Date Last Done [...] Comments UR TOXICOLOGY SCREEN 05/31/2024 12:00 AM EGG PRODUCER THYROID SCREEN WITH REFLEX Routine 05/26/2024 11:45 AM EGG PRODUCER Primary hypertension CBC WITH AUTO DIFFERENTIAL Today 05/26/2024 11:45 AM EGG PRODUCER Chronic diastolic (congestive) heart failure (HCC) Chronic obstructive pulmonary disease with acute exacerbation (HCC) Hyperlipidemia, unspecified hyperlipidemia type VITAMIN B12 Routine 05/26/2024 11:45 AM EGG PRODUCER B12 deficiency THYROID SCREEN WITH REFLEX Routine 05/26/2024 11:45 AM EGG PRODUCER Primary hypertension LIPID PANEL Today 05/26/2024 11:45 AM EGG PRODUCER Hyperlipidemia, unspecified hyperlipidemia type CMP (COMPREHENSIVE METABOLIC PANEL) Routine 05/26/2024 11:45 AM EGG PRODUCER Chronic diastolic (congestive) heart failure (HCC) Hyperlipidemia, unspecified hyperlipidemia type Primary hypertension COMPLETE BLOOD COUNT (CBC) WITH DIFF Today 05/26/2024 11:45 AM EGG PRODUCER Chronic diastolic (congestive) heart failure (HCC) Chronic obstructive pulmonary disease with acute exacerbation (HCC) Hyperlipidemia, unspecified hyperlipidemia type DARYN SCREENING BILATERAL DIGITAL W CAD W MIGUEL Routine 05/02/2024 7:05 AM EGG PRODUCER Breast cancer screening by mammogram HM COLONOSCOPY Routine 09/29/2016 from Last 3 Months or Most Recently Relevant to Health Maintenance Results * UR TOXICOLOGY SCREEN (05/31/2024 12:00 AM EGG PRODUCER) 05/31/2024 us Provider Scan URINE ORDERABLES Final Result Performing Organization Address City/[facility] Co de Phone Number SCAN * THYROID SCREEN WITH REFLEX (05/26/2024 11:45 AM EGG PRODUCER) TSH 1.104 0.300 - 5.000 mIU/L 05/26/2024 1:45 PM EGG PRODUCER [facility] Blood Venipuncture / Unknown 05/26/2024 11:45 AM EGG PRODUCER 05/26/2024 1:03 PM EGG PRODUCER us Kaiden Feliciano PAC CHEMISTRY ORDERABLES Final R esult Performing Organization Address City/[facility]/ZIP Co de Phone Number [facility] [address] [place] [address] * (ABNORMAL) CBC WITH AUTO DIFFERENTIAL (05/26/2024 11:45 AM EGG PRODUCER) WBC 8.07 4.00 - 12.00 10(3)/mcL 05/26/2024 1:27 PM EGG PRODUCER [facility] RBC 4.47 3.80 - 5.30 10(6)/mcL 05/26/2024 1:27 PM [facility] HEMOGLOBIN (HGB) 14.3 12.0 - 15.8 g/dL 05/26/2024 1:27 PM [facility] HEMATOCRIT (HCT) 43.1 36.0 - 47.0 % 05/26/2024 1:27 PM [facility] MCV 96.4(H) 82.0 - 96.0 fL 05/26/2024 1:27 PM [facility] MCH 32.0 26.0 - 34.0 pg 05/26/2024 1:27 PM [facility] MCHC 33.2 31.0 - 36.0 g/dL 05/26/2024 1:27 PM [facility] PLATELET COUNT 382 140 - 440 10(3)/mcL 05/26/2024 1:27 PM [facility] RDW 12.9 11.8 - 15.5 % 05/26/2024 1:27 PM [facility] MPV 10.2 9.7 - 12.4 fL 05/26/2024 1:27 PM [facility] NEUTROPHILS 63.3 47.0 - 73.0 % 05/26/2024 1:27 PM [facility] LYMPHOCYTES 24.0 18.0 - 42.0 % 05/26/2024 1:27 PM [facility] MONOCYTES 7.7 4.0 - 12.0 % 05/26/2024 1:27 PM [facility] EOSINOPHILS 4.3 0.0 - 5.0 % 05/26/2024 1:27 PM [facility] BASOPHILS 0.7 0.0 - 1.0 % 05/26/2024 1:27 PM [facility] ABSOLUTE NEUTROPHILS 5.10 1.60 - 7.70 10(3)/mcL 05/26/2024 1:27 PM [facility] ABSOLUTE LYMPHOCYTES 1.94 1.30 - 3.20 10(3)/mcL 05/26/2024 1:27 PM EGG PRODUCER [facility] ABSOLUTE MONOCYTES 0.62 0.20 - 1.00 10(3)/[facility] 05/26/2024 1:27 PM EGG PRODUCER [facility] ABSOLUTE EOSINOPHIL 0.35 0.00 - 0.40 10(3)/mcL 05/26/2024 1:27 PM EGG PRODUCER [facility] ABSOLUTE BASOPHILS 0.06 0.00 - 0.10 10(3)/[facility] 05/26/2024 1:27 PM EGG PRODUCER [facility] NRBC PER 100 WBC 0 05/26/19 1:27 PM EGG PRODUCER [facility] Blood Venipuncture / Unknown 05/26/2024 11:45 AM EGG PRODUCER 05/26/2024 1:03 PM EGG PRODUCER Kaiden Feliciano PAC HEMATOLOGY ORDERABLES Final Result Performing Organization Address City/[facility]/ZIP Co de Phone Number [facility] [address] [place] [address] * (ABNORMAL) VITAMIN B12 (05/26/2024 11:45 AM EGG PRODUCER) VITAMIN B12 824(H) 213 - 816 pg/mL 05/26/2024 1:52 PM EGG PRODUCER [facility] Blood Venipuncture / Unknown 05/26/2024 11:45 AM EGG PRODUCER 05/26/2024 1:03 PM EGG PRODUCER us Kaiden Feliciano PAC CHEMISTRY ORDERABLES Final R esult [facility] [address] [place] [address] * (ABNORMAL) LIPID PANEL (05/26/2024 11:45 AM EGG PRODUCER) CHOLESTEROL 95 <200 mg/dL 05/26/2024 1:28 PM EGG PRODUCER [facility] TRIGLYCERIDES 89 <150 mg/dL 05/26/2024 1:28 PM EGG PRODUCER [facility] HDL CHOLESTEROL 38(L) >40 mg/dL 1:28 PM [facility] LDL 39 <130 mg/dL 05/26/2024 1:28 PM [facility] VLDL 18 10 - 50 mg/dL 05/26/2024 1:28 PM [facility] CHOL/HDL RATIO 2.5 0.0 - 4.4 05/26/2024 1:28 PM [facility] NON-HDL CHOLESTEROL 57 <130 mg/dL 05/26/2024 1:28 PM [facility] IS THE PATIENT REQUIRED TO BE FASTING? Yes 05/26/2024 1:28 PM [facility] HAS THE PATIENT BEEN FASTING? Yes 05/26/2024 1:28 PM [facility] Blood Venipuncture / Unknown 05/26/2024 11:45 AM EGG PRODUCER 05/26/2024 1:05 PM EGG PRODUCER us Kaiden Feliciano PAC CHEMISTRY ORDERABLES Final R esult [facility] [address] [place] [address] * (ABNORMAL) CMP (COMPREHENSIVE METABOLIC PANEL) (05/26/2024 11:45 AM EGG PRODUCER) SODIUM 144 136 - 145 mmol/L 05/26/2024 1:28 PM [facility] POTASSIUM 3.3(L) 3.5 - 5.1 mmol/L 05/26/2024 1:28 PM [facility] CHLORIDE 107 98 - 107 mmol/L 05/26/2024 1:28 PM [facility] CO2, VENOUS 28 22 - 30 mmol/L 05/26/2024 1:28 PM [facility] ANION GAP 12.3 <18.0 mmol/L 05/26/2024 1:28 PM [facility] GLUCOSE 102(H) 70 - 99 mg/dL 05/26/2024 1:28 PM [facility] BUN 8(L) 10 - 20 mg/dL 05/26/2024 1:28 PM [facility] CREATININE, BLOOD 0.92 0.60 - 1.00 mg/dL 05/26/2024 1:28 PM [facility] BUN/CREATININE RATIO 9(L) 12 - 20 ratio 05/26/2024 1:28 PM [facility] TOTAL PROTEIN 7.1 6.0 - 8.0 g/dL 05/26/2024 1:28 PM [facility] ALBUMIN 4.1 3.5 - 5.0 g/dL 05/26/2024 1:28 PM [facility] A/G RATIO 1.4 1.0 - 2.2 05/26/2024 1:28 PM [facility] CALCIUM 9.4 8.7 - 10.5 mg/dL 05/26/2024 1:28 PM [facility] T BILI 0.4 0.2 - 1.2 mg/dL 05/26/2024 1:28 PM [facility] SGOT (AST) 29 <43 U/L 05/26/2024 1:28 PM [facility] SGPT (ALT) 15 <56 U/L 05/26/2024 1:28 PM [facility] ALKALINE PHOSPHATASE 81 40 - 150 U/L 05/26/2024 1:28 PM [facility] IS THE PATIENT REQUIRED TO BE FASTING? Yes 05/26/2024 1:28 PM [facility] HAS THE PATIENT BEEN FASTING? Yes 05/26/2024 1:28 PM [facility] GFR, ESTIMATED >60 >=60 05/26/2024 1:28 PM [facility] Comment: Creatinine Clearance is the preferred criteria for selecting drug dose adjustments in renally impaired patients. The GFR is provided as additional pertinent clinical information. GFR is reported in mL/min/1.73 sq m. Calculation based on the Chronic Kidney Disease Epidemiology Collaboration (CKD- EPI) equation refit without adjustment for race. GFR, EST. >60 >=60 025 1:28 PM EGG PRODUCER [facility] GFR, EST. NONAFRICAN >60 >=60 05/26/2024 1:28 PM EGG PRODUCER [facility] Blood Venipuncture / Unknown 05/26/2024 11:45 AM EGG PRODUCER 05/26/2024 1:05 PM EGG PRODUCER us Kaiden Feliciano PAC CHEMISTRY ORDERABLES Final R esult [facility] [address] [place] [address] * DARYN SCREENING BILATERAL DIGITAL W CAD W MIGUEL (05/02/2024 7:05 AM EGG PRODUCER) Anatomical Region Laterality Modality breast Bilateral Mammography 05/02/2024 7:08 AM EGG PRODUCER Narrative 05/03/2024 12:56 PM EGG PRODUCER - DARYN SCREENING BILATERAL DIGITAL W CAD [...] Comparison is made to exams dated: 06[facility]07/2019 [facility], [facility], and [facility]. BREAST TISSUE:There are scattered areas of [...] exam. Electronically signed by: Rupa henry/penrad:05/02/2024 21:38:25 Artist'S Manager(s): RT Elizabet(R)(M), [facility] letter sent: Normal Exam Reading location: FORTE [...] Comparison is made to exams dated: 06/07/2019 [facility], 08/13/2020 [facility], and 10/01/2015 [facility]. BREAST TISSUE:There are scattered areas of [...] exam. Electronically signed by: Rupa henry/kvng:05/02/2024 21:38:25 Artist'S Manager(s): RT Elizabet(R)(M), [facility] letter sent: Normal Exam Reading location: FORTE Mammogram BI-RADS: Category 1: Negative Monica Villarreal MD IMG MAMMO ORDERABLES Final Result * HM COLONOSCOPY (09/29/2016) Sailaja Garcia MD PROCEDURE/MINOR SURGICAL ORDER MANDI Final Result from Last 3 Months or Most Recently Relevant to Health Maintenance Insurance [facility] Care Teams Goggles Assembler Relationship Specialty Start Date End Date Kaiden Feliciano, PAC [address] [place] [phone] PCP - General Physician Cabin Equipment Supervisor 05/23/24
--- OUTSIDE RECORDS SUMMARY | 2024-08-21 21:09 | XMS_ITS | Clinical Summary ---
Author Organization [facility] Address [address] [place] [address] Care Team Providers Care Host/Hostess Head Name Role Phone Essence Bowles MD Primary Care Provider [phone] [facility],non-owned Affiliates and Associated Physician Practices is amultiple site organization consisting of ambulatory clinics and hospital sitesin [place], [place], [place] and [place]. This disclosure is being madepursuant to the Care Everywhere program and may not contain all information available regarding this patient. Last updated 17.[facility] Social History Tobacco Use Types Packs/Day Years [...] this topic Insurance [employer] ANTH Care Teams Host/Hostess Head Relationship Specialty Start Date End Date Essence Bowles MD [address] [place] [address] [address] [place] [address] PCP - General 08/29/19
--- OUTSIDE RECORDS SUMMARY | 2024-08-21 21:09 | XMS_ITS | Clinical Summary ---
Author Organization [facility] rofessional Office [facility] Address [address] [place] [phone] Care Team Providers Care Eyedotter Name Role Phone [facility], External Provider Primary Care Provider Un available [...] (#1) 2023 Insurance [employer] CAR[employer] Care Teams Eyedotter Relationship Specialty Start Date End Date [facility], External Provider [address] [place] [address] PCP - General 09/28/18
--- OUTSIDE RECORDS SUMMARY | 2024-08-21 21:09 | XMS_ITS | Encounter Summary ---
Author Organization [facility] Address [address] [place] [address] Care Team Providers Care Csr Retail Name Role Phone Unavailable Primary Care Provider Unavailabl e Prior Encounters Date Type Department Care Team Description 04/23/2019 Converted CPS Chart Documents [facility] [address] [phone] <No scans attached> 04/23/2019 Converted 13x Documents [...]
--- OUTSIDE RECORDS SUMMARY | 2024-08-21 21:09 | XMS_ITS | Encounter Summary ---
Author Organization [facility] Address [address] [facility] [place] [address] Phone Care Team Providers Care Anger Control Counselor Name Role Phone Elver Pineda MD Primary Care Provider [phone] Monica Villarreal MD Primary Care Provider + [phone] Kaiden Feliciano Primary Care Provider + [phone] Encounter Details Date Type Department Care Team (Latest Contact Info) Description 09/22/2022 Transcribe Orders [facility] Patient Access Admitting [address] [place] [address] Edmundo Carvajal MD [address], [address] [place] [address] Pain of lower extremity, unspecified [...] Description 11/21/2024 8:15 AM CDT Office Visit [facility] - Primary Care - [place] [address] [place] [address] Kaiden Feliciano PAC [address] [place] [address] documented as of this encounter Results * D-DIMER (09/22/2022 7:28 AM CDT) D DIMER 0.35 <0.50 mcg/mL FEU 09/22/2022 8:07 AM CDT [facility] Blood Venipuncture / Unknown 09/22/2022 7:28 AM CDT 09/22/2022 7:50 AM CDT Narrative [facility] - 09/22/2022 8:07 AM CDT The FDA has approved this method to exclude the diagnosis of DVT and/or PE at the cutoff value of <0.50 mcg/mL FEU. us Edmundo Carvajal MD HEMATOLOGY ORDERABLES Final Res ult [facility] [place] [address] * (ABNORMAL) VITAMIN B12 (09/22/2022 7:28 AM CDT) VITAMIN B12 >=2,000(H) 243 - 894 pg/mL 09/22/2022 8:39 AM CDT [facility] Blood Venipuncture / Unknown 09/22/2022 7:28 AM CDT 09/22/2022 7:50 AM CDT Edmundo Carvajal MD CHEMISTRY ORDERABLES Final Resu lt [facility] [place] [address] * VITAMIN D, 25 HYDROXY TOTAL (09/22/2022 7:28 AM CDT) VITAMIN D, 25 HYDROX 68 >=30 ng/mL 09/22/2022 8:37 AM CDT [facility] Blood Venipuncture / Unknown 09/22/2022 7:28 AM CDT 09/22/2022 7:50 AM CDT Narrative [facility] - 09/22/2022 8:37 AM CDT Published reference ranges for Vitamin D vary depending on time and place and method of testing, and on patient's age, sex, ethnicity and levels of other measured analytes such as parathormone, calcium and phosphorus. The result should be evaluated in conjunction with clinical findings and suspicions. [place] of [employer] and Endocrine Clinical Practice Guidelines: Status Vitamin D levels (ng/mL) Deficient <=20 At risk of inadequacy 21-29 Sufficient 30-100 Centers of Disease Control and Prevention Guidelines: Status Vitamin D levels (ng/mL) Deficient <13 At risk of inadequacy 13-19 Sufficient 20-50 Possibly harmful >50 References: [place] [employer], 2010 Dietary reference intakes for calcium and vitamin D. [place]: The National Academies Press. John M, Ines N, Shahnaz OROZCO, et al., Evaluation, treatment, and prevention of Vitamin D deficiency: an Endocrinology Clinical Practice Guideline. JCEM 2011 96: 7 5367-5924. Janie A, Ismael C, Diandra D, et al., Vitamin D Status: [place], 8299-6044, [facility] data brief, no. 59, MD [place]: [facility] for [facility] Statistics. 2011. Edmundo Carvajal MD CHEMISTRY ORDERABLES Final Resu lt [facility] [place] [address] * (ABNORMAL) LIPID PANEL (09/22/2022 7:28 AM CDT) CHOLESTEROL 215(H) <=200 mg/dL 09/22/2022 8:27 AM CDT [facility] TRIGLYCERIDES 185(H) <150 mg/dL 09/22/2022 8:27 AM CDT [facility] HDL CHOLESTEROL 45.5 >40 mg/dL 8:27 AM CDT [facility] LDL 133(H) 5 - 130 mg/dL 09/22/2022 8:27 AM CDT [facility] VLDL 37 5 - 55 mg/dL 09/22/2022 8:27 AM CDT [facility] CHOL/HDL RATIO 4.7(H) 0.0 - 4.4 09/22/2022 8:27 AM CDT [facility] NON-HDL CHOLESTEROL 169.5(H) <130 mg/dL 09/22/2022 8:27 AM CDT [facility] IS THE PATIENT REQUIRED TO BE FASTING? No 09/22/2022 8:27 AM CDT [facility] Blood Venipuncture / Unknown 09/22/2022 7:28 AM CDT 09/22/2022 7:50 AM CDT Edmundo Carvajal MD CHEMISTRY ORDERABLES Final Resu lt [facility] [place] [address] * (ABNORMAL) LIPOPROTEIN (A) (09/22/2022 7:28 AM CDT) [facility] LIPOPROTEIN(a) 72(H) <31 mg/dL 09/22/2022 3:23 PM CDT [facility] Blood Venipuncture / Unknown 09/22/2022 7:28 AM CDT 09/22/2022 7:50 AM CDT Narrative [facility] - 09/22/2022 3:23 PM CDT Values greater than 30 mg/dL may suggest increased risk of Coronary Heart Disease.. us Edmundo Carvajal MD CHEMISTRY ORDERABLES Final Resu lt Performing Organization Address City/[facility]/ZIP Co de Phone Number [facility] [address] [place] [address], [place] * C-REACTIVE PROTEIN (CRP) HIGH SENSITIVE (09/22/2022 7:28 AM CDT) [facility] CRP ULTRAQUANT 1.93 <5.00 mg/L 09/22/2022 7:46 PM CDT [facility] Blood Venipuncture / Unknown 09/22/2022 7:28 AM CDT 09/22/2022 7:50 AM CDT us Edmundo Carvajal MD CHEMISTRY ORDERABLES Final Resu lt Performing Organization Address City/[facility]/ZIP Co de Phone Number [facility] [address] [place] [address], [place] * HEMOGLOBIN A1C W/ ESTIMATED GLUCOSE (09/22/2022 7:28 AM CDT) [facility] HGB-A1C 5.3 4.0 - 6.0 % 09/22/2022 8:17 AM CDT [facility] Est Average Glucose 105.4 mg/dL 09/22/2022 8:17 AM CDT [facility] Blood Venipuncture / Unknown 09/22/2022 7:28 AM CDT 09/22/2022 7:50 AM CDT Narrative [facility] - 09/22/2022 8:17 AM CDT HEMOGLOBIN A1C: DIABETIC PATIENTS: WELL-CONTROLLED: 6.2 - 7.0 INTERMEDIATE WELL-CONTROLLED: 7.0 - 9.0 POORLY-CONTROLLED: >9.0 Edmundo Carvajal MD CHEMISTRY ORDERABLES Final Resu lt Performing Organization Address City/[facility]/ZIP Co de Phone Number [facility] [address] [place] [address] * UR MICROALBUMIN/CREATININE RATIO RANDOM (09/22/2022 7:28 AM CDT) RAN UR MICROALBUMIN <=1.20 <=2.00 mg/dL 09/22/2022 8:39 AM CDT [facility] CREATININE URINE 143.9 28.0 - 217.0 mg/dL 09/22/2022 8:39 AM CDT [facility] ALB/CREAT RATIO 8:39 AM CDT [facility] Comment:Unable to calculate Urine Non-Phlebotomy Collection / Unknown 09/22/2022 7:28 AM CDT 09/22/2022 7:50 AM CDT us Edmundo Carvajal MD URINE ORDERABLES Final Result Performing Organization Address [facility]/ZIP Co de Phone Number [facility] [place] [address] * (ABNORMAL) IRON W/IRON BINDING CAPACITY (09/22/2022 7:28 AM CDT) IRON 49.65 37 - 145 mcg/dL 09/22/2022 8:27 AM CDT [facility] % SATURATION * 17(L) 20 - 55 % 09/22/2022 8:27 AM CDT [facility] UIBC 241 112 - 346 mcg/dL 09/22/2022 8:27 AM CDT [facility] TIBC CALC 291 149 - 491 mcg/dL 09/22/2022 8:27 AM CDT [facility] Blood Venipuncture / Unknown 09/22/2022 7:28 AM CDT 09/22/2022 7:50 AM CDT Edmundo Carvajal MD CHEMISTRY ORDERABLES Final Resu lt Performing Organization Address City/[facility]/ZIP Co de Phone Number [facility] [place] [address] * FERRITIN (09/22/2022 7:28 AM CDT) FERRITIN 147 13 - 150 ng/mL 09/22/2022 8:27 AM CDT [facility] Blood Venipuncture / Unknown 09/22/2022 7:28 AM CDT 09/22/2022 7:50 AM CDT Edmnudo Carvajal MD CHEMISTRY ORDERABLES Final Resu lt Performing Organization Address City/[facility]/ZIP Co de Phone Number [facility] [place] [address] * (ABNORMAL) CMP (COMPREHENSIVE METABOLIC PANEL) (09/22/2022 7:28 AM CDT) SODIUM 139 136 - 144 mmol/L 09/22/2022 8:27 AM CDT [facility] POTASSIUM 3.3(L) 3.5 - 5.1 mmol/L 09/22/2022 8:27 AM CDT [facility] CHLORIDE 102 100 - 110 mmol/L 09/22/2022 8:27 AM CDT [facility] CO2, VENOUS 26 22 - 32 mmol/L 09/22/2022 8:27 AM CDT [facility] ANION GAP 14.3 8.0 - 20.0 mmol/L 09/22/2022 8:27 AM CDT [facility] GLUCOSE 95 70 - 99 mg/dL 09/22/2022 8:27 AM [facility] BUN 8 6 - 20 mg/dL 09/22/2022 8:27 AM [facility] CREATININE, BLOOD 0.93 0.60 - 1.10 mg/dL 09/22/2022 8:27 AM [facility] BUN/CREATININE RATIO 9(L) 12 - 20 ratio 09/22/2022 8:27 AM [facility] TOTAL PROTEIN 6.7 6.0 - 8.3 g/dL 09/22/2022 8:27 AM [facility] ALBUMIN 4.1 3.5 - 5.2 g/dL 09/22/2022 8:27 AM [facility] Comment: The colormetric methods used for the determination of Albumin may lead to falsely elevated test results in patients suffering from renal failure or insufficiency due to interference with other proteins. A/G RATIO 1.6 1.0 - 2.0 09/22/2022 8:27 AM [facility] CALCIUM 9.3 8.9 - 10.3 mg/dL 09/22/2022 8:27 AM [facility] T BILI <0.3 <=1.2 mg/dL 09/22/2022 8:27 AM [facility] SGOT (AST) 13 <=32 U/L 09/22/2022 8:27 AM [facility] SGPT (ALT) 12 <=41 U/L 09/22/2022 8:27 AM [facility] ALKALINE PHOSPHATASE 88 35 - 105 U/L 09/22/2022 8:27 AM [facility] IS THE PATIENT REQUIRED TO BE FASTING? No 09/22/2022 8:27 AM [facility] GFR, ESTIMATED >60 >=60 09/22/2022 8:27 AM [facility] Comment: Creatinine Clearance is the preferred criteria for selecting drug dose adjustments in renally impaired patients. The GFR is provided as additional pertinent clinical information. GFR is reported in mL/min/1.73 sq m. Calculation based on the Chronic Kidney Disease Epidemiology Collaboration (CKD- EPI) equation refit without adjustment for race. GFR, EST. >60 >=60 023 8:27 AM CDT [facility] GFR, EST. NONAFRICAN >60 >=60 09/22/2022 8:27 AM CDT [facility] Blood Venipuncture / Unknown 09/22/2022 7:28 AM CDT 09/22/2022 7:50 AM CDT Edmundo Carvajal MD CHEMISTRY ORDERABLES Final Resu lt Performing Organization Address City/[facility]/ZIP Co de Phone Number [facility] [place] [address] * N-TERMINAL- PRO B TYPE NATRIURETIC PEPTIDE (09/22/2022 7:28 AM CDT) NT PROBNP 55.3 36.0 - 125.0 pg/mL 09/22/2022 8:24 AM CDT [facility] Comment:NT-proBNP values < 3 00 pg/mL [...] of 89% and 72% for acute CHF. ([facility] data) Blood Venipuncture / Unknown 09/22/2022 7:28 AM CDT 09/22/2022 7:50 AM CDT us Edmundo Carvajal MD CHEMISTRY ORDERABLES Final Resu lt Performing Organization Address City/[facility]/ZIP Co de Phone Number [facility] [place] [address] documented in this encounter Visit Diagnoses Diagnosis [...] type documented in this encounter Care Teams Anger Control Counselor Relationship Specialty Start Date End Date Elver Pineda MD [address] [place] [address] PCP - General Family Medicine 08/07/19 03/11/24 Monica Villarreal MD [address] [place] [address] PCP - General Family Medicine 03/12/24 05/22/24 Kaiden Feliciano, [facility] [address] [place] [address] PCP - General Physician Sales Consulting Director 05/23/24 documented as of this encounter
--- OUTSIDE RECORDS SUMMARY | 2024-08-21 21:09 | XMS_ITS | Continuity of Care Document ---
Author Organization [facility] Address [address] [place] [address] Phone Care Team Providers Care Operations Intern Name Role Phone John Guevara MD Unavailable Unavailable Advance Directives Directive Yes / No Effective Date File Name No Information Encounters Encounter Description Practice Location Reason(s) For Visit Diagnoses Date Provider Providers Copied on Encounter [facility], [address], [place], [place], [id number] , tel: [phone] [facility] No Information Nov-0 9 Ismael John. [address] [place] [address], [id number] , . tel: [phone] [facility], [address], [place], [place], [id number] , tel: [phone] [facility] ALLERGIC RHINITIS NECTOBACCO USE DISORDERINTRINSIC ASTHMA NOS Aug-0 5200 9 Ismael Lopez. [address] [place] [address], [id number] , . tel: [phone] Family History Family Member Type Diagnosis Age At Onset No Information Payers Payer name Insurance type Covered democrat ID Authoriza tion(s) No Information Social History [...]
--- OUTSIDE RECORDS SUMMARY | 2024-08-21 21:09 | XMS_ITS | Encounter Summary ---
Author Organization [facility] Address [address] [place] [address] Phone Care Team Providers Care Information Technology Consultant Name Role Phone Kaiden Feliciano Primary Care Provider Reason for Visit * Reason Comments Medication Refill Encounter Details Date Type Department Care Team (Late st Contact Info) Description 06/11/2024 Refill [facility] - Primary Care - [place] [address] [place] [address] Kaiden Feliciano PAC [address] [place] [address] Medication Refill Social History Tobacco Use Types Packs/Day Years Used Date Smoking Tobacco: Former Cigarettes 2017 Smokeless Tobacco: Never Alcohol Use Standard Drinks/Week Comments Not Currently 0 (1 standard drink = 0.6 oz pure alcohol) Pt only drinks on the 05 of October [facility] Utilities Answer Date Recorded In the past 12 months has [employer], gas, oil, or water company threatened to [...] declined 05/21/2024 How often do you attend congregational or anabaptist serv ices? Patient declined 05/21/2024 Do you belong to any clubs o r organizations such as congregational groups, unions, fraternal or athletic groups, or [...] Total Score - Questions 1-9 7 05/05 [facility] - Occupational Stress [...] any time in the past 12 m [facility], were you homeless or living in a half-way (including now)? Patient declined 05/21/2024 Sexually Active [...] Dept 05/23/24 Office Visit Kaiden Feliciano PAC [facility] 03/12/24 Office Visit Monica Villarreal MD [facility] Showing recent visits within past 365 [...] Description 11/21/2024 8:15 AM CDT Office Visit [facility] - Primary Care - Nicolas [address] [place] [address] Kaiden Feliciano PAC [address] [place] [address] documented as of this encounter Visit Diagnoses Not on filedocumented in this encounter Additional Health Concerns Assessment Noted Time PHQ-9 Depression Total Score: 7 05/23/19 2:46 PM GROUP INSURANCE SPECIALIST documented as of this encounter Care Teams Information Technology Consultant Relationship Specialty Start Date End Date Kaiden Feliciano PAC [address] [place] [address] PCP - General Physician Commercial Manager 05/23/24 documented as of this encounter
--- OUTSIDE RECORDS SUMMARY | 2024-08-21 21:09 | XMS_ITS | Clinical Summary ---
Author Organization [facility] Address [address] [place] [address] Care Team Providers Care It Infrastructure Engineer Name Role Phone Unavailable Primary Care Provider [...]
[2024-08-21 21:13] LABS: Troponin I < 0.012 ng/mL (0.000-0.034)
[2024-08-21] MEDS: LIDOCAINE 5% PATCH 1 PATCH TRANSDERM (21:57)
[2024-08-21] MEDS: diazePAM INJ (*CRX) 10 MG/2 ML SYRINGE 5 MG IV PUSH (21:57)
== END 2024-08-21 22:52 | disposition home or self-care (01) ==
PROVIDERS: Physician Assistant; Emergency Provider Emergency Medicine; PCP Physician Assistant
DX: M62.830 Muscle spasm of back (principal); Z20.822 Contact with and (suspected) exposure to COVID-19; J44.9 Chronic obstructive pulmonary disease, unspecified; I10 Essential (primary) hypertension; K21.9 Gastro-esophageal reflux disease without esophagitis; Z90.710 Acquired absence of both cervix and uterus; R94.31 Abnormal electrocardiogram [ECG] [EKG]; R00.0 Tachycardia, unspecified
CPT/HCPCS: 36415; 71046; 71275; 80053; 83735; 84484; 85025; 85380; 85610; 85730; 87637; 93005; 96374; 99284; A9270; J3360; Q9967